=== PATIENT | female | born 1945 | race Caucasian/White ===

== ENCOUNTER → 2016-11-28 | Outpatient (CLI) | payer BC ==
[~2016-11-28] MED LIST: ACET1TAB84 PO; ACET325T96 PO; ASPEC325 PO; ASPI325T45 PO; CALC500C3 PO; CEPH500C2 PO; FRRG PO; HYDR-5688 PO; LACT1CAP6 PO; LORA-741 PO; LOSA50TA6 PO; METO25TA3 PO; MISCCAP80 PO; MULT-845 PO; OMEG10007 PO; OXYC-57 PO; PROM25TA9 PO; SALI1SPR3 NAE
--- NOTE | 2016-11-28 11:52 | Discharge Instructions ---
Discharge Instructions Procedure Procedure Date: Nov 28, 2016. Reason for visit: Right Masses. Discharge Discharge Date: Nov 28, 2016. Discharge Diagnosis: post right breast ultrasound guided core biopsy x 2 Instructions Activity Recommendations: Additional Limitations (see below) Return to School/Work: no limitations Recommended Home Diet: No Limitations Provider Instructions: ACTIVITY RECOMMENDATIONS: * No lifting, pushing, pulling or exercising the affected side for three days. RETURN TO SCHOOL/WORK: * You may return to work/school after the procedure, but do not perform any strenuous activities for 24 to 48 hours. MEDICATIONS: * Tylenol (two 325 mg) every four to six hours if needed for mild pain (if not allergic to Tylenol). DIET: * Resume previous diet. SPECIAL CARE INSTRUCTIONS: * Keep biopsy site dry for 24 hours. May shower after 24 hours, but do not soak (bathe) incision. * May remove Tegaderm (plastic patch) tomorrow AFTER showering. * Leave the steri-strips on for one week. Allow the steri-strips to fall off by themselves. If not off after one week, you may remove them. You may place a Bandaid crosswise over the strips, if desired. * Apply ice 10 minutes on and 10 minutes off as needed. * Wear a bra at bedtime to sleep more comfortably for 2-3 days. * Your referring physician should have the results after approximately 5 to 7 business days. * Call for unusual bleeding, fever, drainage, etc or if you have any questions call [phone] during normal business hours or after hours call Dr Villatoro, . FOLLOW UP VISIT: Follow-up with Referring Physician as scheduled. Allergies Coded Allergies: Ciprofloxacin (Verified Allergy, Unknown, itching, 02/02/15) Maximo Albert Recommendations: Call your doctor if: * Temperature above 101 degrees * Pain not relieved by pain medicine ordered * There is increased drainage or redness from any incision * You have any unanswered questions or concerns. Your Doctors Instructions noted above were prepared by provider Arlette Villatoro. Patient Signature Section: Patient Instructions Signature Page Ayde Oneill Patient (or Guardian) Signature/Date: I have read and understand the instructions given to me by my caregivers. Caregiver/RN/Doctor Signature/Date: The above-named patient and/or guardian has received patient instructions on this date. + Original Patient Signature Page (only) stays with chart. Please make copy for patient.
--- NOTE | 2016-11-28 15:11 | MAMMOGRAPHY REPORT ---
UNILATERAL RIGHT DIGITAL DIAGNOSTIC MAMMOGRAM TOMOSYNTHESIS: 11/28/2016 CLINICAL HISTORY: Status post ultrasound guided core needle biopsy of an irregular and angular mass in the 9:00 periareolar right breast, and a small indeterminate hypoechoic mass in the 12:00 right b reast. FINDINGS: Please refer to the report from right breast ultrasound guided core biopsy performed at t he same time for full detail. IMPRESSION: POST PROCEDURE IMAGING FOR MARKER PLACEMENT Please refer to the report from right breast ultrasound guided core biopsy performed at the same jermain e for full detail. Approximately 10% of breast cancers are not detected with mammography. A negative mammographic repor t should not delay biopsy if a clinically suggestive mass is present. Arlette Villatoro M.D. ay/:11/28/2016 12:03:10 Attending Technologist: Nevaeh SABA(Janes)(M), [facility] Lab Tech: Yin Larios, [facility] BI-RADS Code: Post Procedure Imaging For Marker Placement
--- NOTE | 2016-11-28 15:11 | MAMMOGRAPHY REPORT ---
MULTIPLE ULTRASOUND GUIDED BIOPSIES RIGHT BREAST: 11/28/2016 CLINICAL HISTORY: Indeterminate solid masses in the 9:00 and 12:00 right breast. Patient presented for ultrasound-guided core biopsy. Please refer to the report from right breast ultrasound guided core biopsy performed at the same jermain e for full detail. IMPRESSION: ULTRASOUND GUIDED BIOPSY Please refer to the report from right breast ultrasound guided core biopsy performed at the same jermain e for full detail. Arlette Villatoro M.D. ay/:11/28/2016 12:03:54 Attending Technologist: Nevaeh SABA(Janes)(M), [facility] Dry Cell Sealer: Yin Larios, [facility]
--- NOTE | 2016-11-28 15:11 | MAMMOGRAPHY REPORT ---
THIS REPORT HAS BEEN AMENDED. MULTIPLE ULTRASOUND GUIDED BIOPSIES RIGHT BREAST: 11/28/2016 CLINICAL HISTORY: Irregular and angular mass in the 9:00 right breast, and a lobulated hypoechoic in determinate mass in the 12:00 right breast. Patient presents for ultrasound guided core needle biop sy 2. COMPARISON: Comparison is made to exams dated: 11/14/2016 mammogram, 11/14/2016 ultrasound, 11/03/20 16 mammogram, 10/14/2015 mammogram, and 10/09/2013 mammogram - [facility]. PATIENT CONSENT: The procedure, risks and benefits were discussed with the patient and informed writ ten consent was obtained. Specific risks to this procedure include: bleeding, infection, puncture of adjacent structure, nontarget biopsy, sampling error and medication reaction. PROCEDURE DESCRIPTION: A time out was performed and the right breast was agreed as the site of biops y. The skin was prepped and draped in the usual sterile fashion. First, the solid irregular and ang ular mass in the 9:00 right breast was identified and chosen as the target for biopsy. Subcutaneous and intraparenchymal 1% buffered lidocaine, with and without epinephrine, was administered as local anesthesia. A skin incision was made. Through the incision, 7 samples were taken with a 14 gauge Ac hieve biopsy device. A ribbon shaped metallic marker was placed at the biopsy site. Hemostasis was a chieved after manual compression. The patient tolerated the procedure well and there was no immediat e complication. The samples were sent to the pathology department in an appropriately labeled conta iner. Then the lobulated hypoechoic solid-appearing mass in the 12:00 breast was identified and chosen as target for biopsy. Additional 1% buffered lidocaine with and without epinephrine was administered a s local anesthesia. A skin incision was made. Through the incision, 6 samples were taken with a 14 gauge Achieve biopsy device. A wing-shaped metallic marker was placed at the biopsy site. Hemostasis was achieved after manual compression. The patient tolerated the procedure well and there was no im mediate complication. The samples were sent to the pathology department in an appropriately labeled container. Post procedure right CC and ML tomosynthesis images demonstrate a new ribbon-shaped metallic biopsy marker in the 9:00 breast, and new wing-shaped metallic biopsy marker in the 12:00 breast, at the si te of the biopsied hypoechoic solid masses seen on ultrasound. There is minimal post biopsy hematom a superior to the wing-shaped metallic biopsy marker in the 12:00 axis, likely due to lidocaine inje ction, and also small 1 cm hematoma at the site of the biopsied irregular mass in the 9:00 breast. IMPRESSION: ULTRASOUND GUIDED BIOPSY Status post ultrasound-guided core biopsy of indeterminate solid masses in the 9:00 and 12:00 right breast, with biopsy markers placed at each site. The patient will receive notification of the biopsy results from her referring physician. Arlette Villatoro M.D. ay/:11/28/2016 12:18:35 Attending Technologist: Nevaeh SABA(R)(M), [facility] Belting Inspector: Yin Larios, [facility] AMENDMENT: 12/06/2016 Arlette Villatoro M.D. 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 Pathology results from the small hypoechoic mass in the 12:00 right breast also frisian elded an intraductal papilloma. No carcinoma was seen. No significant atypia was associated with t he palpable mass. However, given the angular appearance of the biopsy-proven papilloma in the 9:00 right breast, surgical excision is recommended. Therefore, surgical consultation for possible surgi favian excision of both lesions is recommended.
== END ==
LOC: C.MAMM 10:49
PROVIDERS: ATTEND Obstetrics & Gynecology
DX: N60.21 Fibroadenosis of right breast (principal); R92.0 Mammographic microcalcification found on diagnostic imaging of breast

== ENCOUNTER 2017-01-16 08:21 | Inpatient (IN) | payer BC, OTHER ==
[2016-12-18 14:05] VITALS: BMI 29.0
--- NOTE | 2016-12-18 14:43 | PAT Medication Instructions ---
Service Date Dec 18, 2016. Current Home Medication List Acetaminophen (Tylenol Arthritis Ext Rel), 650 MG PO NOON Calcium Carbonate (Tums), 1 TAB PO PRN Fish Oil ([place]-3), 1,000 MG PO NOON Lactobacillus (Probiotic), 1 CAP PO NOON Lorazepam (Ativan), 0.5 MG PO BID Losartan Potassium (Cozaar), 75 MG PO BID Metoprolol Succinate (Toprol Xl), 25 MG PO QAM Multiple Vitamins W/ Minerals (Centrum Silver Adult 50+), 1 PO NOON Saline (Saline Nasal [place]), 1 SPRAY AL BID Medication Instructions For Your Scheduled Surgery - Hold the following medications 2 weeks prior to surgery: Fish Oil ([place]-3), 1,000 MG PO NOON - Hold the following medications 24 hours prior to surgery: Losartan Potassium (Cozaar), 75 MG PO BID - Hold the following medications the morning of surgery: Calcium Carbonate (Tums), 1 TAB PO PRN Multiple Vitamins W/ Minerals (Centrum Silver Adult 50+), 1 PO NOON Lactobacillus (Probiotic), 1 CAP PO NOON - Take the following medications the morning of surgery with a sip of water OTHERWISE NOTHING TO EAT OR DRINK AFTER MIDNIGHT: Acetaminophen (Tylenol Arthritis Ext Rel), 650 MG PO NOON (may take up to 4 hours prior to surgery if needed) Saline (Saline Nasal [place]), 1 SPRAY AL BID Metoprolol Succinate (Toprol Xl), 25 MG PO QAM Lorazepam (Ativan), 0.5 MG PO BID - Take the following medications as scheduled the night before surgery: Acetaminophen (Tylenol Arthritis Ext Rel), 650 MG PO NOON Saline (Saline Nasal [place]), 1 SPRAY AL BID If you have any questions please call us at [phone] (Flower [place] PA-C) or [phone] or [phone]
[2016-12-18 15:07] LABS: BASO % 0.5 %; BASO ABS # 0.03 K/uL (0-0.2); COMPLETE YES; EOS % 3.1 %; IG% 0.2 %; LYMPH % 35.1 %; LYMPH ABS # 2.15 K/uL (1.2-3.4); MEAN CELL VOLUME 87.8 fL (80-100); MEAN CORPUSCULAR HEMOGLOBIN 30.5 pg (25-34); MEAN CORPUSCULAR HGB CONC 34.7 g/dl (32-36); MEAN PLATELET VOLUME 8.9 fL (7.4-10.4); MONO % 10.4 %; NEUT % 50.7 %; PLATELET COUNT 192 K/uL (130-400); WHITE BLOOD COUNT 6.13 K/uL (4.8-10.8)
[2016-12-18 15:20] LABS: PARTIAL THROMBOPLASTIN RATIO 1.2; PROTHROMBIN TIME (PATIENT) 10.3 SECONDS (9.0-12.0)
--- NOTE | 2016-12-18 15:32 | DIAGNOSTIC IMAGING REPORT ---
CHEST 2 VIEWS ROUTINE CLINICAL HISTORY: Preoperative chest COMPARISON STUDY: 01/01/2015 FINDINGS: The cardiac and mediastinal contours are normal. There is no evidence of focal pulmonary consolidation. There is no evidence of failure. No pleural effusions are visualized.[ Prominent left basal markings are likely atelectatic IMPRESSION: No active disease in the chest. Electronically signed by: Thad Colin M.D. 12/18/2016 3:30 PM Dictated Date/Time: 12/18/2016 3:29 PM
[2016-12-18 16:03] LABS: C-REACTIVE PROTEIN 0.67 mg/dl (0-0.29); CALCIUM 9.4 mg/dl (8.5-10.1); CREATININE 0.9 mg/dl (0.60-1.20); POTASSIUM 3.8 mmol/L (3.5-5.1)
[2016-12-18 16:38] LABS: BUN/CREATININE RATIO 31.4 (10-20)
[2016-12-19 06:22] LABS: ESTIMATED AVERAGE GLUCOSE 105 mg/dl; HA1C FLAG Normal (Normal)
--- NOTE | 2017-01-13 10:23 | HISTORY & PHYSICAL EXAMINATION ---
DATE OF ADMISSION: 01/16/2017 CHIEF COMPLAINT: Left knee pain. HISTORY OF PRESENT ILLNESS: A 71-year-old female who is now 2 years out from a right knee replacement, presents for surgical treatment of her left knee. She has got a fairly long history of left knee pain and discomfort that has gotten worse over the past 2 years. She describes global pain. The more she is on it the more it hurts and the more it swells. She has pain with every step. She has been through extensive conservative treatment including injections and aspiration injection which become less successful over time. She would like to have her left knee replaced. She is happy with her right knee. No significant pain or discomfort. PAST MEDICAL HISTORY: 1. Monoclonal gammopathy. 2. History of fainting spells. 3. Hypertension. 4. Gastroesophageal reflux disease. PAST SURGICAL HISTORY: Include: 1. Tonsillectomy. 2. Breast lumpectomy. 3. Right knee replacement done 02/02/2015. ALLERGIES: CIPRO. CURRENT MEDICINES: 1. Losartan 75 mg twice a day. 2. Metoprolol 25 mg in the morning. 3. Lorazepam 0.5 mg twice a day. 4. Centrum Silver. 5. Probiotic. 6. Tylenol Arthritis. 7. Fish oil. SOCIAL HISTORY: A 71-year-old female. She is from [place]. She is . Two drinks per day. Does not smoke. FAMILY HISTORY: Significant for heart disease, diabetes, myeloma. REVIEW OF SYSTEMS: Significant for this monoclonal gammopathy. Denies any bleeding or chest pain. No shortness of breath. No history of DVT or PE. PHYSICAL EXAMINATION: GENERAL: Reveals a healthy pleasant, middle-aged female. She looks to be in good health. HEAD, EYES, EARS, NOSE, AND THROAT EXAMINATION: Benign. NECK: Supple. No lymphadenopathy. LUNGS: Clear to auscultation. HEART: Regular rate and rhythm. ABDOMEN: Soft, nontender, nondistended. EXTREMITY EXAMINATION: Grossly neurovascularly intact except as follows: Examination of left knee reveals slight varus alignment to her knee. She has got a moderate sized knee effusion. Range of motion is 5-120. No instability. No pain with hip motion. Examination of the right knee reveals well-healed incision. No effusion. Range of motion 0-120. X-RAYS: X-rays of the left knee reviewed. It shows advanced medial compartment DJD. She has got complete loss of the medial joint space. She does have some tibial femoral subluxation. She has osteophytes primarily in the medial and patellofemoral compartments. ASSESSMENT: A 71-year-old female 2 years for right knee replacement with advanced left knee degenerative joint disease. She has failed conservative treatment and would like to have her left knee replaced. PLAN: We are going to take her to the operative left total knee replacement. The risks and benefits of this procedure were explained to the patient including but not limited to DVT, PE, , infection, neurological injury, vascular injury, bleeding problems, pain, limited range of motion, stiffness, failure to relieve symptoms, incomplete relief of symptoms, persistent pain, etc. The patient understands and desires to proceed. Informed consent was obtained. The patient had preoperative workup. Chest x-ray showed no acute disease. EKG showed normal sinus rhythm. Labs were all normal except just slightly elevated sed rate and C-reactive protein. She has got no focal signs of infection. The knee is doing well. The patient did struggle with pain initially in the postop period. The morphine really had an adverse effect and will have to try and manage her pain alternatively. She did pretty well with Percocet and will probably stick with that and stay away from the morphine.
[2017-01-16] VITALS (8 sets, daily range): BP systolic 127–167; BP diastolic 75–95; PULSE 53–74; TEMP 36.3–37.1; O2SAT 94–99; Ht 165.1 cm; Wt 79.9 kg
[~2017-01-16] VITALS: Ht 165.1 cm; Wt 79.9 kg
[~2017-01-16 08:21] MED LIST changes: -ACET325T96 PO; +ACETAMINOPHEN 500 MG TAB PO SCH; -ASPEC325 PO; -ASPI325T45 PO; +BUPIVACAINE 0.25% 30 ML VIAL ONE; +BUPIVACAINE 0.5 % 5 MG/1 ML PF 10ML VIAL ONE; +BUPIVACAINE LIPOSOME 266 MG, BUPIVACAINE/EPINEPHRINE INJ 50 ML, SODIUM CHLORIDE 0.9% PF... INFIL SCH; +CEFAZOLIN 2000 MG/60 ML D5W 60 ML IV SCH; -CEPH500C2 PO; +FAMOTIDINE 20 MG TAB PO SCH; -FRRG PO; +GABAPENTIN 300 MG CAP PO SCH; -HYDR-5688 PO; +LACTATED RINGER'S 1000ML 1,000 ML IV SCH; +LACTATED RINGER'S 1000ML 500 ML IV ONE; +LACTATED RINGER'S 1000ML IV SCH; +METOCLOPRAMIDE HCL 10 MG TAB PO SCH; -MISCCAP80 PO; -OXYC-57 PO; -PROM25TA9 PO; +SCOPOLAMINE 1.5 MG TDSY TD SCH; +TRANEXAMIC ACID INJ 1,000 MG in SODIUM CHLORIDE 0.9% 100ML 100 ML IV SCH
--- NOTE | 2017-01-16 08:50 | History & Physical Bridge Note ---
H&P Re-Evaluation Bridge Note: I have examined the patient, reviewed the History & Physical and in the interval since the performance of the History & Physical I have noted the following changes of clinical significance: No changes noted
[2017-01-16] MEDS ORDERED: MIDAZOLAM HCL 1 MG/ML 2ML VIAL ONE (10:03)
[2017-01-16] MEDS ORDERED: FENTANYL CITRATE INJ 50 MCG/1 ML 2 ML VIAL ONE (10:03)
[2017-01-16] MEDS ORDERED: ATROPINE SULFATE 0.1 MG/ML 5ML SYR IV PRN (11:00)
[2017-01-16] MEDS ORDERED: EpHEDrine SULFATE INJ 50 MG/ML AMP IV PRN (11:00)
[2017-01-16] MEDS ORDERED: BUPIVACAINE/EPINEPHRINE 0.25% 1:200,000 30 ML VIAL ONE (11:21)
[2017-01-16] MEDS ORDERED: PROPOFOL IV EMULSION 10 MG/ML 20 ML VIAL IV ONE ×2 (11:54)
[2017-01-16] MEDS ORDERED: LIDOCAINE HCL 2% 2 ML VIAL (20MG/ML) ONE (11:54)
[2017-01-16] MEDS ORDERED: BACITRACIN 50,000 UNITS IR ONE (12:12)
--- NOTE | 2017-01-16 13:06 | [facility] Post Operative Brief Note ---
Immediate Operative Summary Operative Date Jan 16, 2017. Pre-Operative Diagnosis Left Knee Advanced Degenerative Joint Disease Post-Operative Diagnosis Left Knee Advanced Degenerative Joint Disease Procedure(s) Performed Left Total Knee Arthroplasty Surgeon Dr. Morse Winder Helper Surgeon(s) NICKI Dickens Estimated Blood Loss 50 ml Findings Left Knee DJD Fluids (cc crystalloids) 1000 cc Specimens A. Left Knee Bone and Tissue Drains None Anesthesia Spinal Complication(s) None Disposition Recovery Room / PACU
[2017-01-16] MEDS ORDERED: ALUMINUM/MAGNESIUM/SIMETH (MAALOX MAX) 30 ML UDC PO PRN (13:15)
[2017-01-16] MEDS ORDERED: SILVER SULFADIAZINE 1% CR 50 GM JAR EXT PRN (13:15)
[2017-01-16] MEDS ORDERED: OXYCODONE HCL IR 5 MG TAB (IMMEDIATE RELEASE) PO PRN (13:15)
[2017-01-16] MEDS ORDERED: BISACODYL 10 MG SUPP PR PRN (13:15)
[2017-01-16] MEDS ORDERED: METOCLOPRAMIDE HCL INJ 5 MG/ML 2 ML VIAL IV PRN (13:15)
[2017-01-16] MEDS ORDERED: CALCIUM CARBONATE 500 MG CHEWABLE PO PRN (13:15)
[2017-01-16] MEDS ORDERED: ZOLPIDEM TARTRATE 5 MG TAB PO PRN (13:15)
[2017-01-16] MEDS ORDERED: MAGNESIUM HYDROXIDE SUSP 30 ML UDC PO PRN (13:15)
[2017-01-16] MEDS ORDERED: DiphenhydrAMINE HCL 50 MG/ML VIAL IV PRN (13:15)
--- NOTE | 2017-01-16 13:34 | DIAGNOSTIC IMAGING REPORT ---
LEFT KNEE 1 OR 2 VIEWS ROUTINE CLINICAL HISTORY: Degenerative arthritis. Postop study. COMPARISON: None. DISCUSSION: There are postsurgical changes of a total left knee arthroplasty and patellar resurfacing. The femoral and tibial components appear well seated. Overlying skin nikhil are evident. There is air within soft tissues consistent with recent surgery. IMPRESSION: Postsurgical changes of a total left knee arthroplasty. Electronically signed by: Thad Colin M.D. 01/16/2017 1:33 PM Dictated Date/Time: 01/16/2017 1:32 PM
--- NOTE | 2017-01-16 13:48 | Anesthesiology Progress Note ---
Anesthesia Post Op Note Date & Time Jan 16, 2017 at 13:48 Vital Signs Pain Intensity: 0 Vital Signs Past 12 Hours Date Time Temp Pulse Resp B/P Pulse Ox O2 Delivery O2 Flow Rate FiO2 01/16/17 13:40 36.4 63 16 125/80 99 Nasal Cannula 2 01/16/17 13:30 58 15 134/76 99 Nasal Cannula 2 01/16/17 13:20 64 14 128/76 97 Nasal Cannula 2 01/16/17 13:14 36.3 69 16 121/68 97 Nasal Cannula 2 01/16/17 08:50 36.4 74 18 167/95 97 Room Air Notes Mental Status: alert / awake / arousable, participated in evaluation Pt Amnestic to Procedure: Yes Nausea / Vomiting: adequately controlled Pain: adequately controlled Airway Patency, RR, SpO2: stable & adequate BP & HR: stable & adequate Hydration State: stable & adequate Neuraxial Anesthesia: was administered, sensory block is resolving Anesthetic Complications: no major complications apparent
--- NOTE | 2017-01-16 13:59 | OPERATIVE REPORT ---
DATE OF OPERATION: 01/16/2017 SURGEON: Aaron Morse MD OUTSIDE SALES INSPECTOR: NICKI Gregory PREOPERATIVE DIAGNOSIS: Left knee degenerative joint disease. POSTOPERATIVE DIAGNOSIS: Same. PROCEDURE PERFORMED: Left cemented posterior stabilized total knee arthroplasty. COMPLICATIONS: None. ESTIMATED BLOOD LOSS: 50 mL. FLUID REPLACEMENT: 1000 mL crystalloid fluid replacement. ANESTHESIA: Spinal with adductor canal block. DRAINS: None. SPECIMENS: Left knee sent for pathology. TOURNIQUET TIME: 49 minutes at 300 mmHg. OPERATIVE INDICATIONS: The patient is a 71-year-old very active female who has had a long history of bilateral knee problems. She underwent a right knee replacement a little over 2 years ago and has done pretty well from this. She developed persistent and progressive pain in her left knee, unresponsive to conservative treatment. She elected to proceed with operative treatment. OPERATIVE FINDINGS: Operative findings revealed advanced left knee DJD. She had grade 4 [id number] disease of the medial femoral condyle and medial tibial plateau. She had extensive eburnation of the medial femoral condyle and medial tibial plateau. She had osteophytes primarily in the medial compartment. She had a varus deformity to her knee. Moderate-sized knee effusion. OPERATIVE IMPLANTS: Operative implants consisted of: 1. Biomet Vanguard size 65 left posterior stabilized femoral component. 2. Biomet size 71 tibial tray. 3. A 12-mm posterior stabilized polyethylene insert. 4. A 34 x 8.5 all poly patella. OPERATIVE PROCEDURE: The patient was taken to the operating room, identified and placed on the operating table in the supine position. All contact areas were appropriately padded. IV antibiotics were provided by anesthesia team. A spinal anesthetic and adductor canal block had been provided in the holding area. Finley catheter was placed in sterile fashion. A left thigh tourniquet was then placed and left lower extremity was then prepped and draped in the usual sterile fashion. The left leg was elevated and exsanguinated with Esmarch and tourniquet was placed at 300 mmHg. An anterior approach of the left knee was then performed through a longitudinal incision centered over the patella. Sharp dissection was carried out through the subcutaneous tissues down to the level of the extensor mechanism. A medial parapatellar arthrotomy incision was made. Some subperiosteal dissection was carried out medially. The fat pad was resected from beneath the patellar tendon. The lateral patellofemoral ligament was released. The patella was everted and knee was flexed. The osteophytes were taken off the distal femur. The ACL and PCL were then released from the distal femur and the tibia subluxated anteriorly. The external tibial alignment jig was then placed in the anterior face of the tibia and adjusted 14 mm medially. Proximal tibial cut was made to remove about a millimeter or 2 of bone from the most deficient aspect of the medial tibial plateau. Tibia was then sized to a size 71. Some osteophytes were taken off medial and posteromedially. Attention was then drawn to the femur. The distal femur was entered with a sharp drill bit. Intramedullary canal was suctioned. A left 5-degree valgus cutting guide was placed. Distal femoral cutting block was pinned in place. Distal femoral cut was made to take an additional 3 mm of bone off the distal femur. The femur was then sized to a size 65. We did downsize this slightly. The AP cutting block was pinned parallel to the epicondylar axis, which was 5 degrees of external rotation. The anterior cut, anterior chamfer, posterior cut, and posterior chamfer cuts were made. Box cutting guide was placed and adjusted slightly lateral. The box cut was made. The knee was flexed. The remnants of the medial and lateral menisci were excised. The osteophytes were taken off the posterior aspect of the femur. Trial femoral component was placed. Tibial tray was pinned in maximum external rotation and drill and stem punch were used to create defect in proximal tibia for the tibial tray. The knee was then trialed and the 12-mm insert fit most appropriately. Attention was then drawn to the patella. The patella was cleaned of all soft tissues. Patella thickness measured 23 mm and cut down to 14. It was sized to a size 34. Lug holes were drilled for a 34 patella. Lateral osteophyte was removed. Patella button was placed. Knee was taken through range of motion and the patella tracked nicely with no thumbs test. Attention was then drawn toward placement of permanent components. All trial components were removed. A bone plug was placed in the distal femur to limit blood loss. A double batch of Palacos G cement was mixed. A left size 65 posterior stabilized femoral component, size 71 tibial tray, 12-mm posterior stabilized polyethylene insert, and a 34 x 8.5 all poly patella were then cemented in place. Knee was brought out into full extension until cement hardened. A final cement check was then performed. The pericapsular tissues were injected with 100 mL of a combination of 20 mL of Exparel, 30 mL of normal saline, and 50 mL of 0.25% Marcaine with epinephrine. The patient did receive 1 gram of tranexamic acid. The tourniquet was then let down for final tourniquet time of 49 minutes. Hemostasis was assured with use of electrocautery. The extensor mechanism was then closed with a combination of #1 PDS suture and #1 Vicryl suture in a [id number] fashion. Extensor mechanism was checked and found to be intact. Subcutaneous tissues were then closed with 2-0 Dexon suture in a buried interrupted fashion. Skin was closed skin nikhil. Leg was then cleaned and dried and a sterile dressing of Xeroform, 4 x 4, sterile cast padding and Tate bandage were applied. The patient was then transferred to the recovery room in stable condition. The patient tolerated the procedure well with no complications. All needle and sponge counts were correct at the end of the operation. I attest to the content of the Intraoperative Record and any orders documented therein. Any exceptio ns are noted below.
[2017-01-16] MEDS: D5W AND 1/2NSS + 20MEQ KCL 1,000 ML IV SCH ×2 (15:26→23:20)
[2017-01-16] MEDS: KETOROLAC TROMETHAMINE 15 MG/ML VIAL IV. SCH ×2 (15:27→21:55)
[2017-01-16] MEDS: CHECK SCOPOLAMINE PATCH PLACEMENT SCH ×2 (15:28→23:23)
--- NOTE | 2017-01-16 15:58 | PROGRESS NOTE ---
DATE: 01/16/2017 DATE: 01/16/2017. SUBJECTIVE: A 71-year-old white female postop from a left knee replacement. She is doing well. Pain is controlled. Really not having any pain yet. No chest pain or shortness of breath. Not feeling dizzy or lightheaded. OBJECTIVE: VITAL SIGNS: Temperature is 36.5. Vital signs stable. PHYSICAL EXAMINATION: GENERAL: Reveals a healthy, pleasant middle-aged female. She is sitting up in bed and looks comfortable. She is talking with her . LUNGS: Clear to auscultation. HEART: Regular rate and rhythm. ABDOMEN: Soft, nontender, nondistended. EXTREMITY EXAMINATION: Grossly neurovascularly intact except as follows: Examination of the left lower extremity reveals the leg to be well aligned. Dressing is clean, dry and intact. She can slightly flex and extend her toes. Really not much feeling yet in her foot. She has got brisk refill. X-RAYS: X-rays of the left knee from recovery room were reviewed. It shows a cemented posterior stabilized total knee arthroplasty. Components looked to be in good position. No signs of problems. ASSESSMENT: A 71-year-old white female postop from a left knee replacement, doing well. Block is just wearing off. No pain at all yet. Her nerve function is returning. PLAN: 1. DVT prophylaxis including thigh-high TEDs, SCDs, and aspirin twice a day. 2. PT/OT. Weight bear as tolerated. Left total knee protocol. 3. Pain control, doing pretty well with current pain regimen. 4. IV antibiotics x24 hours. 5. Disposition: Plan to discharge to home likely with some home health once adequately recovered.
[2017-01-16] MEDS: FERROUS GLUCONATE 324 MG TAB PO SCH (18:45)
[2017-01-16] MEDS ORDERED: TRANEXAMIC ACID INJ 1,000 MG in SODIUM CHLORIDE 0.9% 100ML 100 ML IV SCH (19:00)
[2017-01-16] MEDS: ONDANSETRON INJ 2 MG/ML 2 ML VIAL IV PRN (19:19)
[2017-01-16] MEDS: CEFAZOLIN IV 1,000 MG in DEXTROSE 5% 50ML 50 ML IV SCH (20:27)
[2017-01-16] MEDS: TAPENTADOL ER 50 MG TABCR PO SCH (20:28)
[2017-01-16] MEDS: ASPIRIN 325 MG ECTAB PO SCH (20:30)
[2017-01-16] MEDS: DOCUSATE SODIUM 100 MG CAP PO SCH (20:30)
[2017-01-16] MEDS: LORAZEPAM 0.5 MG TAB PO SCH (20:47)
[2017-01-16] MEDS: SODIUM CHLORIDE 0.65% NA SOLN 45 ML (OCEAN) NAE SCH (20:47)
[2017-01-16] MEDS: ACETAMINOPHEN 500 MG TAB PO SCH (21:55)
[2017-01-17 03:23] VITALS: BP 139/79; PULSE 69; TEMP 36.9; O2SAT 95
[2017-01-17] MEDS: CEFAZOLIN IV 1,000 MG in DEXTROSE 5% 50ML 50 ML IV SCH (03:52)
[2017-01-17] MEDS: KETOROLAC TROMETHAMINE 15 MG/ML VIAL IV. SCH ×5 (03:52→22:03)
[2017-01-17] MEDS: ACETAMINOPHEN 500 MG TAB PO SCH ×3 (05:50→22:04)
[2017-01-17] MEDS: D5W AND 1/2NSS + 20MEQ KCL 1,000 ML IV SCH (05:50)
[2017-01-17 06:03] LABS: HEMATOCRIT 28.6 % (37-47); MEAN CELL VOLUME 87.2 fL (80-100); MEAN CORPUSCULAR HEMOGLOBIN 30.2 pg (25-34); MEAN CORPUSCULAR HGB CONC 34.6 g/dl (32-36); MEAN PLATELET VOLUME 8.8 fL (7.4-10.4); PLATELET COUNT 157 K/uL (130-400); RED BLOOD COUNT 3.28 M/uL (4.2-5.4); WHITE BLOOD COUNT 6.32 K/uL (4.8-10.8)
[2017-01-17 06:50] LABS: BLOOD UREA NITROGEN 13 mg/dl (7-18); CALCIUM 8.2 mg/dl (8.5-10.1); CARBON DIOXIDE 27 mmol/L (21-32); CHLORIDE 103 mmol/L (98-107); GLUCOSE 110 mg/dl (70-99); POTASSIUM 4.1 mmol/L (3.5-5.1); SODIUM 138 mmol/L (136-145)
--- NOTE | 2017-01-17 07:45 | Anesthesiology Progress Note ---
Anesthesia Post Op Note Date & Time Jan 17, 2017 at 07:45 Vital Signs Pain Intensity: 0.0 Vital Signs Past 12 Hours Date Time Temp Pulse Resp B/P Pulse Ox O2 Delivery O2 Flow Rate FiO2 01/17/17 03:23 36.9 69 16 139/79 95 Room Air 01/16/17 23:20 Room Air 01/16/17 23:10 37.1 74 16 137/78 94 Room Air Notes Mental Status: alert / awake / arousable, participated in evaluation Pt Amnestic to Procedure: Yes Nausea / Vomiting: adequately controlled Pain: adequately controlled Airway Patency, RR, SpO2: stable & adequate BP & HR: stable & adequate Hydration State: stable & adequate Neuraxial Anesthesia: sensory block resolved Anesthetic Complications: no major complications apparent
[2017-01-17 08:15] VITALS: BP 142/50; PULSE 72; TEMP 36.8; O2SAT 95
[2017-01-17] MEDS: CHECK SCOPOLAMINE PATCH PLACEMENT SCH ×3 (08:22→23:28)
[2017-01-17 08:42] VITALS: O2SAT 95
[2017-01-17] MEDS: FERROUS GLUCONATE 324 MG TAB PO SCH ×3 (09:18→17:38)
[2017-01-17] MEDS: PANTOprazole SOD 40 MG TAB PO SCH (09:18)
[2017-01-17] MEDS: CEROVITE ADV FORMULA TAB PO SCH (09:20)
[2017-01-17] MEDS: LOSARTAN POTASSIUM 25 MG TAB PO SCH (09:20)
[2017-01-17] MEDS: DOCUSATE SODIUM 100 MG CAP PO SCH ×2 (09:22→20:50)
[2017-01-17] MEDS: ASPIRIN 325 MG ECTAB PO SCH ×2 (09:23→20:49)
[2017-01-17] MEDS: MULTIVITAMIN TAB PO SCH (09:24)
[2017-01-17] MEDS: SODIUM CHLORIDE 0.65% NA SOLN 45 ML (OCEAN) NAE SCH ×2 (09:25→20:49)
[2017-01-17] MEDS: METOPROLOL SUCC 25MG EXT REL TAB PO SCH (09:25)
[2017-01-17] MEDS: ONDANSETRON INJ 2 MG/ML 2 ML VIAL IV PRN (09:31)
[2017-01-17] MEDS: LORAZEPAM 0.5 MG TAB PO SCH ×2 (09:34→20:49)
[2017-01-17] MEDS: TAPENTADOL ER 50 MG TABCR PO SCH ×2 (09:35→20:49)
[2017-01-17 11:39] VITALS: BP 122/64; PULSE 76; TEMP 36.8; O2SAT 96
[2017-01-17] MEDS ORDERED: LACTOBACILLUS ACIDOPHILUS (FLORANEX) TAB PO SCH (12:30)
[2017-01-17] MEDS ORDERED: PROM25TA9 PO (13:26)
[2017-01-17] MEDS ORDERED: ASPEC325 PO (13:26)
[2017-01-17] MEDS ORDERED: FRRG PO (13:26)
[2017-01-17] MEDS ORDERED: OXYC-57 PO (13:26)
--- NOTE | 2017-01-17 13:28 | Discharge Instructions ---
Discharge Instructions Admission Reason for Admission: Left Knee Degenerative Joint Disease Discharge Discharge Diagnosis / Problem: Left Knee Replacement Discharge Goals Goal(s): Decrease discomfort, Improve function, Increase independence, Improve disease control, Therapeutic intervention Activity Recommendations Activity Limitations: per Instructions/Follow-up section Weightbearing Status: Left weightbearing . Instructions / Follow-Up Instructions / Follow-Up ACTIVITY RECOMMENDATIONS: Physical Therapy: * You will go to physical therapy three times each week for four to six weeks after your surgery in order to regain your knee range of motion and to retrain your knee to work properly. * It is just as important to make sure you are getting your knee perfectly straight as it is to regain your knee bend. * Taking a pain pill an hour before therapy can help you have a more productive and comfortable therapy session. Home Exercise: * You were shown a series of exercises (heel props, heel slides, etc.) in the hospital. Do these exercises three to four times each day including the exercises you were shown in physical therapy. Walking: * Get up and walk several times each day. For the first four weeks, try not to stand or walk for more than one hour at a time. If you do stand or walk for more than one hour, you will not hurt anything, but your knee and leg will likely swell. * As you feel comfortable, you may change from the walker or crutches to a cane and then to independent walking. MEDICATIONS: New Medicine: * You will likely be taking one or more of these medications: 1. Percocet - A quick and shorter-acting pain medication. Take one to two tablets every four to six hours to lessen your pain. 2. Iron Sulfate - Take three times each day for the month after surgery to help you replace the blood lost during surgery. 3. Aspirin - Thins your blood to lessen the chance of forming a blood clot. * The most common side effects of pain medicine and iron are nausea and constipation. If nausea or constipation is too much of a problem or if you have any questions about your new medicines or doses, call [facility] at . We will try to help you manage these issues. VERY IMPORTANT TO READ AND REVIEW" Pain: * The immediate post-operative period after knee replacement surgery is often quite painful. * You are given a prescription for pain medicine. You should take it, as directed, when you need it, especially before physical therapy and before going to bed. Pain that interferes with sleep is very common and can last several months. * You will likely need pain medicine for the first four to six weeks. It will not stop all of the pain. The pain will lessen and as you feel better, you may change to milder pain medicine such as Tylenol. * The most common side effects of pain medicine are nausea and constipation, so don't take more than you need. SPECIAL CARE INSTRUCTIONS: TEDs/Elastic Stockings: * The white elastic stockings help limit swelling and prevent blood clots from forming in your legs. The more you wear them, the more they work. * Wear them for six weeks after knee replacement surgery and four weeks after partial knee replacement. Prevention of Infection: * Take antibiotics one hour before any dental cleaning, dental work, urological procedure, gastrointestinal procedure or any invasive surgery in order to prevent your new joint from getting infected. * You may get the antibiotics from the doctor performing the procedure or you may call our office at before and we will call in a prescription to the pharmacy of your choice. Things to Watch For: * Drainage from the incision site that occurs more than one week after your surgery. * Severely increased knee/leg pain or swelling. * Increased redness at the incision site. * Fever above 102 degrees Fahrenheit. * Unusual chest pain or shortness of breath. * Unusual pain or burning with urination. Call [facility] at with any of the above problems or if you have any questions about your medicines or recovery. FOLLOW UP VISIT: Make an appointment to see your doctor for approximately two weeks after surgery for a progress check and staple removal by calling the office at . Current Hospital Diet Patient's current hospital diet: Regular Diet Discharge Diet Recommended Diet: Regular Diet Procedures Procedures Performed: Left Total Knee Arthroplasty Pending Studies Studies pending at discharge: no Laboratory Results Hemoglobin A1c Test 12/18/16 14:48 Range/Units Estimated Average Glucose 105 mg/dl Hemoglobin A1c 5.3 4.5-5.6 % Medical Emergencies . Who to Call and When: Medical Emergencies: If at any time you feel your situation is an emergency, please call 911 immediately. . Non-Emergent Contact Non-Emergency issues call your: Surgeon . "Provider Documentation" section prepared by Aaron Morse. VTE Core Measure Inpt VTE Proph given/why not?: Other Anticoagulation, Collette Candelaria, SCD's
--- NOTE | 2017-01-17 13:46 | PROGRESS NOTE ---
DATE: 01/17/2017 DATE: 01/17/2017. SUBJECTIVE: A 71-year-old white female postop day 1 from a left total knee replacement. She is doing well. Really not had much pain. Did get nauseated overnight after given some pain medicine. Denies any chest pain or shortness of breath. Not feeling dizzy or lightheaded. OBJECTIVE: VITAL SIGNS: Temperature 36.8. Vital signs stable. PHYSICAL EXAMINATION: GENERAL: Reveals a healthy, pleasant middle-aged female. She is sitting up in bed and looks completely comfortable. LUNGS: Clear to auscultation. HEART: Has a regular rate and rhythm. ABDOMEN: Soft, nontender, nondistended. EXTREMITY EXAMINATION: Grossly neurovascularly intact except as follows: Examination of the left lower extremity reveals the leg to be well aligned. She can dorsiflex and plantarflex her foot appropriately. She is neurologically intact. LABORATORIES: Hemoglobin is 9.9, hematocrit 28.6. Electrolytes are stable. ASSESSMENT: A 71-year-old white female postop day 1 from left total knee replacement, doing pretty well. Pain is controlled. One episode of emesis last night, but doing better this morning. Pain is controlled. PLAN: 1. DVT prophylaxis including thigh-high TEDs, SCDs, and aspirin twice a day. 2. PT/OT. Weightbearing as tolerated. Left total knee protocol. 3. Pain control. Doing well with current pain regimen. 4. Anemia. She is relatively asymptomatic. We will continue iron supplementation. 5. Disposition: She is planning to be discharged to home with home health once adequately recovered.
[2017-01-17 15:07] VITALS: BP 150/81; PULSE 73; TEMP 36.9; O2SAT 96
[2017-01-17 23:15] VITALS: BP 144/77; PULSE 81; TEMP 37.2; O2SAT 95
[2017-01-18] MEDS: KETOROLAC TROMETHAMINE 15 MG/ML VIAL IV. SCH ×2 (03:51→09:24)
[2017-01-18] MEDS: ACETAMINOPHEN 500 MG TAB PO SCH (05:42)
[2017-01-18 07:07] VITALS: BP 150/78; PULSE 80; TEMP 36.8; O2SAT 94
[2017-01-18] MEDS: FERROUS GLUCONATE 324 MG TAB PO SCH (07:28)
[2017-01-18] MEDS: SODIUM CHLORIDE 0.65% NA SOLN 45 ML (OCEAN) NAE SCH (07:28)
[2017-01-18] MEDS: PANTOprazole SOD 40 MG TAB PO SCH (07:29)
[2017-01-18] MEDS: METOPROLOL SUCC 25MG EXT REL TAB PO SCH (07:29)
[2017-01-18] MEDS: CEROVITE ADV FORMULA TAB PO SCH (07:29)
[2017-01-18] MEDS: LOSARTAN POTASSIUM 25 MG TAB PO SCH (07:31)
[2017-01-18] MEDS: MULTIVITAMIN TAB PO SCH (07:31)
[2017-01-18] MEDS: LORAZEPAM 0.5 MG TAB PO SCH (07:32)
[2017-01-18] MEDS: TAPENTADOL ER 50 MG TABCR PO SCH (07:32)
--- NOTE | 2017-01-18 07:43 | PROGRESS NOTE ---
DATE: 01/18/2017 SUBJECTIVE: 71-year-old white female postop day 2 from a left knee replacement. She is doing pretty well. Having a bit more pain with motion. Really no pain at rest. No chest pain or shortness of breath. Not feeling dizzy or lightheaded. OBJECTIVE: VITAL SIGNS: Temperature 36.8. Vital signs stable. PHYSICAL EXAMINATION: GENERAL: Reveals a healthy, pleasant middle-aged female. She is sitting up in her bedside chair eating breakfast. Looks pretty comfortable. LUNGS: Clear to auscultation. HEART: Regular rate and rhythm. ABDOMEN: Soft, nontender, nondistended. EXTREMITIES: Grossly neurovascularly intact except as follows: Examination of the left lower extremity reveals the dressing to be clean, dry and intact. She can dorsiflex and plantarflex her foot appropriately. She is neurologically intact. ASSESSMENT: 71-year-old white female postop day 2 from a left knee replacement, doing pretty well. Pain is reasonably well controlled. PLAN: 1. DVT prophylaxis including thigh-high TEDs, SCDs, and aspirin twice a day. 2. PT/OT. Weightbearing as tolerated. Left total knee protocol. 3. Pain control, doing pretty well with current pain regimen. 4. Disposition: Plan to discharge to home with home health.
[2017-01-18 08:07] VITALS: BP 150/78; PULSE 80; TEMP 36.8; O2SAT 94
[2017-01-18] MEDS: ASPIRIN 325 MG ECTAB PO SCH (08:59)
[2017-01-18] MEDS: DOCUSATE SODIUM 100 MG CAP PO SCH (08:59)
--- NOTE | 2017-01-24 10:44 | DISCHARGE SUMMARY ---
ADMITTING PHYSICIAN AND SURGEON: Dr. Morse. ADMITTING DIAGNOSIS: Left knee degenerative joint disease. SURGERY PERFORMED: Left total knee arthroplasty. SECONDARY DIAGNOSES: Monoclonal gammopathy, history of fainting, hypertension, gastroesophageal reflux disease. CONSULTS: None obtained. HISTORY AND PHYSICAL EXAMINATION: Well documented in the patient's chart. HOSPITAL COURSE: The patient admitted on 01/16/2017 underwent total knee arthroplasty. She tolerated the procedure well. There were no complications. She was transferred to the PACU postoperatively and later to the orthopedic floor for further care. She was given Ancef for antibiotic prophylaxis, LORRIE stockings, SCDs and aspirin for DVT prophylaxis. Hemoglobin, hematocrit and vital signs were monitored during her hospital stay and remained stable. She developed some postoperative anemia with a hemoglobin down to 9.9. She did not require any blood transfusions. She was given an iron supplement. There were no complications. By postoperative day 2, she was tolerating a general diet, pain was controlled with oral pain medicine. She was participating in physical therapy and had no signs or symptoms of deep vein thrombosis. On postop day 2, she was discharged home in good condition, set up with home health services, given printed discharge instructions including prescriptions for aspirin 325 mg b.i.d., iron supplement, Percocet and Phenergan. Continue her home medications, continue physical therapy, weightbearing as tolerated and LORRIE stockings. Follow up in 10-12 days or sooner if there are problems or concerns.
[2017-02-08] MEDS ORDERED: ASPI325T45 PO (14:33)
[2017-03-06] MEDS ORDERED: CEPH500C2 PO (11:11)
[2017-03-06] MEDS ORDERED: HYDR-5688 PO (11:11)
[2017-03-30] MEDS ORDERED: MISCCAP80 PO (14:17)
[2017-04-04] MEDS ORDERED: CEPH500C2 PO (12:12)
[2017-04-04] MEDS ORDERED: HYDR-5688 PO (12:12)
== END 2017-01-18 10:25 | disposition home health service (06) | DRG 470 ==
LOC: ENRESERVTM → ENRESERVDT → C.ACU 08:21 → C.3E 08:45 → UNDOADMIN 14:38
PROVIDERS: ADMIT Orthopaedic Surgery Sports Medicine; ATTEND Orthopaedic Surgery Sports Medicine
PROC: 0SRD0J9 Replacement of Left Knee Joint with Synthetic Substitute, Cemented, Open Approach (ICD-10-PCS; principal; 2017-01-16 10:30)
DX: M17.12 Unilateral primary osteoarthritis, left knee (principal); M21.162 Varus deformity, not elsewhere classified, left knee; M25.462 Effusion, left knee; R11.2 Nausea with vomiting, unspecified; D47.2 Monoclonal gammopathy; I10 Essential (primary) hypertension; K21.9 Gastro-esophageal reflux disease without esophagitis; D64.9 Anemia, unspecified; F41.9 Anxiety disorder, unspecified; F32.9 Major depressive disorder, single episode, unspecified; Z87.891 Personal history of nicotine dependence; Z96.651 Presence of right artificial knee joint; Z79.899 Other long term (current) drug therapy

== ENCOUNTER → 2017-03-06 | Day surgery (SDC) | payer BC ==
[2017-02-08 14:34] VITALS: Ht 165.1 cm; Wt 80.0 kg
[~2017-03-06] VITALS: Ht 165.1 cm; Wt 80.0 kg
[~2017-03-06] MED LIST changes: -ACETAMINOPHEN 500 MG TAB PO SCH; +ASPI325T45 PO; +ATROPINE SULFATE 0.1 MG/ML 5ML SYR IV PRN; -BUPIVACAINE 0.25% 30 ML VIAL ONE; +BUPIVACAINE 0.5 % 5 MG/1 ML MPF 30ML VIAL ONE; -BUPIVACAINE 0.5 % 5 MG/1 ML PF 10ML VIAL ONE; -BUPIVACAINE LIPOSOME 266 MG, BUPIVACAINE/EPINEPHRINE INJ 50 ML, SODIUM CHLORIDE 0.9% PF... INFIL SCH; -CEFAZOLIN 2000 MG/60 ML D5W 60 ML IV SCH; +CEFAZOLIN 2000 MG/60 ML D5W IV SCH; +CEPH500C2 PO; +DEXAMETHASONE SOD INJ 4 MG/ML VIAL ONE; +EpHEDrine SULFATE 50MG/5ML SYR ONE; +EpHEDrine SULFATE INJ 50 MG/ML AMP IV PRN; +EpHEDrine SULFATE INJ 50 MG/ML AMP ONE; -FAMOTIDINE 20 MG TAB PO SCH; +FENTANYL CITRATE INJ 50 MCG/1 ML 2 ML VIAL IV PRN; +FENTANYL CITRATE INJ 50 MCG/1 ML 2 ML VIAL ONE; +FLUMAZENIL 0.1 MG/1 ML 10 ML VIAL IV PRN; +FRRG PO; -GABAPENTIN 300 MG CAP PO SCH; +HYDR-5688 PO; +HYDROCODONE/ACETAMOPHEN 5/325MG TAB PO PRN; +HYDROmorphone INJ 2 MG/ML SYR/VIAL IV PRN; +LABETALOL HCL IV 5 MG/ML 20ML IV PRN; -LACTATED RINGER'S 1000ML 500 ML IV ONE; -LACTATED RINGER'S 1000ML IV SCH; +LIDOCAINE HCL 2% 2 ML VIAL (20MG/ML) ONE; +MEPERIDINE HCL 25 MG/ML CARP IV PRN; -METOCLOPRAMIDE HCL 10 MG TAB PO SCH; +MIDAZOLAM HCL 1 MG/ML 2ML VIAL ONE; +MISCCAP80 PO; +NALOXONE HCL 0.4 MG/1 ML VIAL/CARP IV PRN; -OMEG10007 PO; +ONDANSETRON INJ 2 MG/ML 2 ML VIAL IV PRN; +ONDANSETRON INJ 2 MG/ML 2 ML VIAL ONE; +PHENYLEPHRINE 100MCG/ML 5ML SYR IV PRN; +PROPOFOL IV EMULSION 10 MG/ML 20 ML VIAL IV ONE; -SCOPOLAMINE 1.5 MG TDSY TD SCH; +SODIUM CHLORIDE 0.9% 1000ML 1,000 ML IV SCH; -TRANEXAMIC ACID INJ 1,000 MG in SODIUM CHLORIDE 0.9% 100ML 100 ML IV SCH; +WATER, STERILE FOR INJ 10 ML VIAL ONE
--- NOTE | 2017-03-06 11:09 | [facility] Post Operative Brief Note ---
Immediate Operative Summary Operative Date Mar 06, 2017. Pre-Operative Diagnosis Right Breast Papillomas x3 Post-Operative Diagnosis Same Procedure(s) Performed Right Breast Biopsy With Needle Localization x [address] Malagon Sales Associate Surgeon(s) None Estimated Blood Loss 10ml Findings 3 separate specimens with additional tissue Specimens A. Right Breast Papilloma 12 o'clock (sent fresh to [facility] at 1020) , also addnl tissue deep at 12:00 B. Right Breast Papilloma #3 (sent fresh to [facility] at 1039)- superior to 12:00 site C. Right Breast Papilloma 9 o'clock (sent fresh to [facility] at 1039) D. Right Breast Papilloma Part D additional 9 o'clock (permanent) Anesthesia gen/ LMA Complication(s) None Disposition Recovery Room / PACU
--- NOTE | 2017-03-06 11:14 | Discharge Instructions-SurgCtr ---
Discharge Instructions Date of Service Mar 06, 2017. Visit Reason for Visit: Right Breast Mass, Papilloma Of Breast Discharge Discharge Diagnosis / Problem: papillomas Rt breast Discharge Goals Goal(s): Decrease discomfort, Improve function, Improve disease control Activity Recommendations Activity Limitations: as noted below Lifting Limitations: no more than 25 pounds (for 2 weeks) Exercise/Sports Limitations: until after follow-up appointment May Resume Sexual Activity: when tolerated Shower/Bathe: keep incision dry (for 2 days then may shower) Driving or Machine Use: resume 1 day after discharge SPECIAL CARE INSTRUCTIONS: * Cover incisions and change daily for comfort/drainage. * Leave steri strips in place * May use ibuprofen for pain as tolerated. * Expect some swelling and bruising. Call your doctor if: * Temperature above 101 degrees * Pain not relieved by pain medicine ordered * There is increased drainage or redness from any incision * You have any unanswered questions or concerns [phone]. FOLLOW UP VISIT: If not already scheduled, please call the office for a follow-up visit. for next week- suture removal OFFICE PHONE NUMBER: Dr. Malagon Office Anesthesia . Post Anesthesia Instructions: If you have had General Anesthesia or IV Sedation: * Do not drive today. * Resume driving when surgeon permits. * Do not make important decisions or sign legal documents today. * Call surgeon for: 1. Temperature elevations greater than 101 degrees F. 2. Uncontrollable pain. 3. Excessive bleeding. 4. Persistent nausea and vomiting. 5. Medication intolerance (nausea, vomiting or rash). * For nausea and vomiting use only clear liquids such as: tea, soda, bouillon until nausea subsides, then gradually increase diet as tolerated. * If you have any concerns or questions, call your surgeon's office. If physician is unavailable and it is an emergency, call 911 or go to the nearest emergency room. . Diet Recommendations Home Diet: resume previous diet Procedures Procedures Performed: Right Breast Biopsy With Needle Localization x 3 Pending Studies Studies pending at discharge: no Medical Emergencies . Who to Call and When: Medical Emergencies: If at any time you feel your situation is an emergency, please call 911 immediately. . Non-Emergent Contact Non-Emergency issues call your: Primary Care Provider, Surgeon . . "Provider Documentation" section prepared by Gigi Malagon.
[2017-03-06 11:43] VITALS: TEMP 36.5
--- NOTE | 2017-03-06 11:47 | OPERATIVE REPORT ---
DATE OF OPERATION: 03/06/2017 NAME OF OPERATION: Needle localization right breast biopsy x3. PREOPERATIVE DIAGNOSIS: Papilloma of the right breast. POSTOPERATIVE DIAGNOSIS: Same. STAFF SURGEON: Dr. Malagon. ANESTHESIA: General with 0.5% plain Marcaine. PROCEDURE: The patient was brought in the operating room and placed on the operating table in supine position. Her right breast had 3 needles placed at sites that were felt to be papillomas. A transverse incision was made across two of the needles carrying dissection down. One of the needles was 7.5 cm in length. It was at the 12 o'clock position in the breast. This tissue was taken with additional tissue taken deep. This was sent as the first specimen and the clip was within the tissue. I then proceeded to dissect superiorly to this for the second specimen which was actually marked as papilloma 3 and this tissue was sent and the tissue was within the specimen. I was able to dissect through the same incision to the 9 o'clock position and excised the tissue with the needle and this was sent as a 9 o'clock tissue and the clip was within this tissue. I also took additional tissue at the 9 o'clock position and it was sent as a permanent section. At this point, the deep tissue was reapproximated using 2-0 plain catgut suture then the skin reapproximated using 4-0 and 5-0 Monocryl suture with the knots left outside the skin and then Steri-Strips applied. The patient was transferred to recovery room in stable condition. I attest to the content of the Intraoperative Record and any orders documented therein. Any exceptio ns are noted below.
[2017-03-06 12:07] VITALS: BP 145/84; PULSE 71; O2SAT 97
--- NOTE | 2017-03-06 12:35 | Anesthesia Progress Nt - [facility] ---
Anesthesia Post Op Note Date & Time Mar 06, 2017 at 12:34 Vital Signs Pain Intensity: 2 Vital Signs Past 12 Hours Date Time Temp Pulse Resp B/P Pulse Ox O2 Delivery O2 Flow Rate FiO2 03/06/17 12:07 71 16 145/84 97 Room Air 03/06/17 11:43 36.5 73 16 148/81 98 Room Air 03/06/17 11:37 78 94 03/06/17 11:37 78 03/06/17 11:36 75 15 95 03/06/17 11:36 74 15 03/06/17 11:35 145/82 03/06/17 11:33 36.4 95 Room Air 03/06/17 11:31 74 12 93 03/06/17 11:31 74 12 03/06/17 11:30 147/83 03/06/17 11:28 78 15 95 03/06/17 11:28 79 15 03/06/17 11:25 149/80 03/06/17 11:23 85 15 03/06/17 11:23 85 15 94 03/06/17 11:22 82 13 03/06/17 11:22 83 13 95 03/06/17 11:20 148/87 03/06/17 11:17 85 13 96 03/06/17 11:17 85 13 03/06/17 11:15 148/79 03/06/17 11:12 77 9 03/06/17 11:12 75 9 99 03/06/17 11:11 83 17 99 03/06/17 11:11 82 17 03/06/17 11:10 140/89 03/06/17 11:06 90 03/06/17 11:06 90 148/82 96 03/06/17 11:06 36.5 89 16 148/82 98 Mask 8 03/06/17 07:55 36.5 72 16 152/80 97 Room Air Notes Mental Status: alert / awake / arousable, participated in evaluation Pt Amnestic to Procedure: Yes Nausea / Vomiting: adequately controlled Pain: adequately controlled Airway Patency, RR, SpO2: stable & adequate BP & HR: stable & adequate Hydration State: stable & adequate Anesthetic Complications: no major complications apparent
--- NOTE | 2017-03-06 15:16 | MAMMOGRAPHY REPORT ---
MULTIPLE NEEDLE LOCALIZATION RIGHT BREAST: 03/06/2017 CLINICAL HISTORY: 2 biopsy-proven papillomas in the right breast. Patient presents for preoperative needle and wire localization 2, prior to surgical excision. Please refer to the report from right breast ultrasound-guided needle localization performed the [facility] e time for full detail. IMPRESSION: NEEDLE LOCALIZATION Please refer to the report from right breast ultrasound-guided needle localization performed the [facility] e time for full detail. Arlette Villatoro M.D. ay/:03/06/2017 09:02:09 Literacy Specialist: Nevaeh SABA(Janes)(M), [facility]
--- NOTE | 2017-03-06 15:16 | MAMMOGRAPHY REPORT ---
NEEDLE LOCALIZATION RIGHT BREAST: 03/06/2017 CLINICAL HISTORY: 71-year-old woman with 2 biopsy-proven papillomas in the 9:00 and 12:00 axes of th e right breast. Patient presents for preoperative needle and wire localization for surgical excisio n. COMPARISON: Comparison is made to exams dated: 11/28/2016 mammogram, 11/28/2016 ultrasound biopsy, 2016 ultrasound biopsy, 11/14/2016 mammogram, 11/14/2016 ultrasound, and 11/03/2016 mammogram - [facility]. PATIENT CONSENT: The risks of the procedure were explained to the patient and informed consent was o btained. The patient denied a lidocaine allergy and also eating or drinking anything this morning t hat would preclude anesthesia. PROCEDURE DESCRIPTION: First repeat targeted ultrasound was performed in the 9:00 and 12:00 axes of the right breast to reevaluate the previously biopsied masses that yielded papillomas. The angular hypoechoic solid mass in the 9:00 right breast is well seen and the linear internal metallic biopsy marker is identified. In the 11:30 axis, a lobulated hypoechoic solid mass with possible internal b iopsy marker is identified. Both are amenable to ultrasound-guided preoperative needle localization . The skin of the right breast was cleansed with Betadine. 1% buffered lidocaine was first administer ed in the 9:00 axis surrounding the angular hypoechoic solid mass. A 5 cm Becker II needle and wir e combination was inserted into the breast through this mass and then locked in place with the hub o f the needle along the lateral border of the mass. Then the small mass in the 11:30 to 12:00 breast was identified. A second 5 cm Becker II needle and wire combination was inserted into this mass a nd also locked in place. Post ultrasound localization right CC and ML tomosynthesis images were obtained. On the MLO view th e Becker needle and wire placed in the 11:30 to 12:00 axis is located superior to the biopsy marker clip denoting the biopsy proven papilloma. I discussed these findings with the patient and offered her leaving the needle and placed so that this mass can also be removed at the time of excision of the other 2 masses. Therefore, the decision was made to leave this needle in place and I would perf orm targeting of the other/remaining biopsy marker clip with mammographic guidance, given that this was not well-seen on ultrasound. For the mammographic localization of the wing-shaped biopsy marker clip, the breast was placed in la teralmedial compression. Using an alpha numeric grid, the biopsy marker clip was targeted via a la teral approach using a 7.5 cm Becker II needle and wire combination. After confirmation of adequat e needle placement in the LM projection, the breast was placed in CC positioning and adequate depth was assessed. The wire was locked in placed with the hub of the needle at the level of the biopsy m arker clip. The entire procedure, every area localized and length of each needle were discussed with the operati ng surgeon prior to surgery. The patient tolerated the procedures well and she was sent to the oper ating room in satisfactory condition. 3 specimen radiographs were obtained. Within 2 of the specimen, the ribbon and wing-shaped biopsy m arker clips are identified, compatible with successful preoperative localization and subsequent surg ical excision. The third specimen contains a localizing needle and wire. This denotes the site of the newly visualized mass seen at the time of this localization. Final pathology is pending. IMPRESSION: NEEDLE LOCALIZATION Status post preoperative needle and wire localization 3 in the right breast. Final pathology is pe nding. The patient will receive notification of the results from her referring physician. Arlette Villatoro M.D. ay/:03/06/2017 14:32:15 Mixed Livestock Farmer: Nevaeh CORONADO)(M), [facility]
--- NOTE | 2017-03-06 15:18 | MAMMOGRAPHY REPORT ---
UNILATERAL RIGHT DIGITAL DIAGNOSTIC MAMMOGRAM TOMOSYNTHESIS: 03/06/2017 CLINICAL HISTORY: 2 biopsy-proven papillomas in the right breast. Patient presents for preoperative needle and wire localization prior to surgical excision. Please refer to the report from right breast ultrasound-guided needle localization performed the [facility] e time for full detail. IMPRESSION: Please refer to the report from right breast ultrasound-guided needle localization performed the [facility] e time for full detail. Approximately 10% of breast cancers are not detected with mammography. A negative mammographic repor t should not delay biopsy if a clinically suggestive mass is present. Arlette Villatoro M.D. ay/:03/06/2017 09:02:56 Head Automatic Sawyer: Nevaeh CORONADO)(M), [facility] BI-RADS Code: n/a
== END | disposition home or self-care (01) ==
LOC: X.SURG 07:41
PROVIDERS: ATTEND Surgery
DX: D24.1 Benign neoplasm of right breast (principal); D05.11 Intraductal carcinoma in situ of right breast; Z79.899 Other long term (current) drug therapy; I10 Essential (primary) hypertension; Z87.891 Personal history of nicotine dependence; Z83.3 Family history of diabetes mellitus; Z82.3 Family history of stroke; Z80.9 Family history of malignant neoplasm, unspecified

== ENCOUNTER → 2017-03-30 | Outpatient (CLI) | payer BC ==
[~2017-03-30] MED LIST changes: -ASPI325T45 PO; -ATROPINE SULFATE 0.1 MG/ML 5ML SYR IV PRN; -BUPIVACAINE 0.5 % 5 MG/1 ML MPF 30ML VIAL ONE; -CEFAZOLIN 2000 MG/60 ML D5W IV SCH; -DEXAMETHASONE SOD INJ 4 MG/ML VIAL ONE; -EpHEDrine SULFATE 50MG/5ML SYR ONE; -EpHEDrine SULFATE INJ 50 MG/ML AMP IV PRN; -EpHEDrine SULFATE INJ 50 MG/ML AMP ONE; -FENTANYL CITRATE INJ 50 MCG/1 ML 2 ML VIAL IV PRN; -FENTANYL CITRATE INJ 50 MCG/1 ML 2 ML VIAL ONE; -FLUMAZENIL 0.1 MG/1 ML 10 ML VIAL IV PRN; -FRRG PO; -HYDROCODONE/ACETAMOPHEN 5/325MG TAB PO PRN; -HYDROmorphone INJ 2 MG/ML SYR/VIAL IV PRN; -LABETALOL HCL IV 5 MG/ML 20ML IV PRN; -LACTATED RINGER'S 1000ML 1,000 ML IV SCH; -LIDOCAINE HCL 2% 2 ML VIAL (20MG/ML) ONE; -MEPERIDINE HCL 25 MG/ML CARP IV PRN; -MIDAZOLAM HCL 1 MG/ML 2ML VIAL ONE; -NALOXONE HCL 0.4 MG/1 ML VIAL/CARP IV PRN; -ONDANSETRON INJ 2 MG/ML 2 ML VIAL IV PRN; -ONDANSETRON INJ 2 MG/ML 2 ML VIAL ONE; -PHENYLEPHRINE 100MCG/ML 5ML SYR IV PRN; -PROPOFOL IV EMULSION 10 MG/ML 20 ML VIAL IV ONE; -SODIUM CHLORIDE 0.9% 1000ML 1,000 ML IV SCH; -WATER, STERILE FOR INJ 10 ML VIAL ONE
== END | disposition home or self-care (01) ==
LOC: C.PAPS 16:15
PROVIDERS: ATTEND Obstetrics & Gynecology
DX: Z12.4 Encounter for screening for malignant neoplasm of cervix (principal)

== ENCOUNTER 2017-04-04 08:02 | Observation (INO) | payer BC ==
[2017-03-30 14:18] VITALS: BMI 31.0
[2017-03-30 14:35] LABS: BASO % 0.7 %; BASO ABS # 0.04 K/uL (0-0.2); COMPLETE YES; HEMATOCRIT 38.7 % (37-47); IG% 0.2 %; LYMPH ABS # 1.79 K/uL (1.2-3.4); MEAN CELL VOLUME 89.2 fL (80-100); MEAN CORPUSCULAR HEMOGLOBIN 29.5 pg (25-34); MEAN CORPUSCULAR HGB CONC 33.1 g/dl (32-36); MEAN PLATELET VOLUME 9.1 fL (7.4-10.4); MONO % 7.4 %; NEUT % 58.7 %; PLATELET COUNT 240 K/uL (130-400); RED BLOOD COUNT 4.34 M/uL (4.2-5.4); WHITE BLOOD COUNT 5.97 K/uL (4.8-10.8)
--- NOTE | 2017-03-30 14:48 | PAT Medication Instructions ---
Service Date March 30, 2017. Current Home Medication List Calcium Carbonate (Tums), 1 TAB PO PRN Lorazepam (Ativan), 0.5 MG PO BID Losartan Potassium (Cozaar), 75 MG PO BID Metoprolol Succinate (Toprol Xl), 25 MG PO QAM Multiple Vitamins W/ Minerals (Centrum Silver Adult 50+), 1 PO NOON Probiotic Product (Probiotic), 1 TAB PO noon Saline (Saline Nasal [place]), 1 SPRAY AL BID Medication Instructions For Your Scheduled Surgery - Hold the following medications the morning of surgery: Probiotic Product (Probiotic), 1 TAB PO noon Multiple Vitamins W/ Minerals (Centrum Silver Adult 50+), 1 PO NOON Losartan Potassium (Cozaar), 75 MG PO BID Calcium Carbonate (Tums), 1 TAB PO PRN - Take the following medications the morning of surgery with a sip of water: Saline (Saline Nasal [place]), 1 SPRAY AL BID Metoprolol Succinate (Toprol Xl), 25 MG PO QAM Lorazepam (Ativan), 0.5 MG PO BID - Hold the following medications as scheduled the night before surgery: Losartan Potassium (Cozaar), 75 MG PO BID - Take the following medications as scheduled the night before surgery: Saline (Saline Nasal [place]), 1 SPRAY AL BID Lorazepam (Ativan), 0.5 MG PO BID If you have any questions please call us at [phone] (Marcy Rowley PA-C) or [phone] or [phone]
[2017-03-30 15:27] LABS: CALCIUM 9.2 mg/dl (8.5-10.1); CREATININE 1.1 mg/dl (0.60-1.20); POTASSIUM 3.8 mmol/L (3.5-5.1)
[2017-03-30 18:11] LABS: BUN/CREATININE RATIO 12.7 (10-20)
[~2017-04-04] VITALS: Ht 165.1 cm; Wt 79.5 kg
[2017-04-04] VITALS (8 sets, daily range): BP systolic 128–147; BP diastolic 74–87; PULSE 69–92; TEMP 36.1–36.9; O2SAT 91–95; Ht 165.1 cm; Wt 79.5 kg
[~2017-04-04 08:02] MED LIST changes: -ACET1TAB84 PO; +CEFAZOLIN 2000 MG/60 ML D5W IV SCH; -CEPH500C2 PO; -HYDR-5688 PO; -LACT1CAP6 PO; +LACTATED RINGER'S 1000ML 1,000 ML IV SCH
[2017-04-04] MEDS ORDERED: ONDANSETRON INJ 2 MG/ML 2 ML VIAL ONE (09:23)
[2017-04-04] MEDS ORDERED: FENTANYL CITRATE INJ 50 MCG/1 ML 2 ML VIAL ONE (09:23)
[2017-04-04] MEDS ORDERED: PROPOFOL IV EMULSION 10 MG/ML 20 ML VIAL IV ONE (09:23)
[2017-04-04] MEDS ORDERED: LIDOCAINE HCL 2% 2 ML VIAL (20MG/ML) ONE (09:23)
[2017-04-04] MEDS ORDERED: MIDAZOLAM HCL 1 MG/ML 2ML VIAL ONE (09:23)
[2017-04-04] MEDS ORDERED: DEXAMETHASONE SOD INJ 4 MG/ML VIAL ONE (09:23)
[2017-04-04] MEDS ORDERED: ISOSULFAN BLUE 10 MG/ML VIAL 5 ML ONE (10:54)
[2017-04-04] MEDS ORDERED: BUPIVACAINE 0.5 % 5 MG/1 ML MPF 30ML VIAL ONE (10:54)
[2017-04-04] MEDS ORDERED: EpHEDrine SULFATE INJ 50 MG/ML AMP ONE (11:34)
[2017-04-04] MEDS ORDERED: LACTATED RINGER'S 1000ML 1,000 ML IV SCH (12:06)
--- NOTE | 2017-04-04 12:06 | [facility] Post Operative Brief Note ---
Immediate Operative Summary Operative Date April 04, 2017. Pre-Operative Diagnosis Ductal Carcinoma insitu Right Breast Post-Operative Diagnosis Ductal Carcinoma insitu Right Breast Procedure(s) Performed Right Breast Lumpectomy Surgeon Dr. Gigi Malagon 3D Specialist Surgeon(s) Abraham Brady PA-c Estimated Blood Loss 10 ml Findings prior bx cavities Specimens Permanent Specimens Sent Fresh A: Right brest tissue(Long silk anterior/retroareolar--Short silk superior--Methylene Blue medial margin) B: Additional Medial tissue(Short silk superior--Long silk anterior--Methylene blue new medial margin) Anesthesia gen Complication(s) None Disposition Recovery Room / PACU
[2017-04-04] MEDS ORDERED: METHYLENE BLUE 0.5% 10 ML VIAL ONE (12:12)
[2017-04-04] MEDS ORDERED: HYDR-5688 PO (12:12)
[2017-04-04] MEDS ORDERED: CEPH500C2 PO (12:12)
[2017-04-04] MEDS ORDERED: ONDANSETRON INJ 2 MG/ML 2 ML VIAL IV PRN (12:15)
[2017-04-04] MEDS ORDERED: MoRPHine SULFATE 4 MG/ML 1 ML CARP\\VIAL IV PRN (12:15)
[2017-04-04] MEDS ORDERED: PROMETHAZINE HCL INJ 25 MG in SODIUM CHLORIDE 0.9% 50ML 50 ML IV PRN (12:15)
[2017-04-04] MEDS ORDERED: MoRPHine SULFATE 2 MG/ML CARP IV PRN (12:15)
[2017-04-04] MEDS ORDERED: HYDROCODONE/ACETAMOPHEN 5/325MG TAB PO PRN ×2 (12:15)
--- NOTE | 2017-04-04 12:56 | Anesthesiology Progress Note ---
Anesthesia Post Op Note Date & Time April 04, 2017 at 12:56 Vital Signs Pain Intensity: 1 Vital Signs Past 12 Hours Date Time Temp Pulse Resp B/P Pulse Ox O2 Delivery O2 Flow Rate FiO2 04/04/17 12:44 66 16 96 04/04/17 12:44 36.5 66 16 04/04/17 12:40 127/71 04/04/17 12:39 68 12 96 04/04/17 12:39 68 12 04/04/17 12:35 134/77 04/04/17 12:34 73 13 91 04/04/17 12:34 74 13 04/04/17 12:32 134/74 04/04/17 12:30 134/74 04/04/17 12:29 69 15 04/04/17 12:29 70 15 97 04/04/17 12:28 68 16 98 04/04/17 12:28 69 16 04/04/17 12:25 134/73 04/04/17 12:23 71 13 04/04/17 12:23 71 13 97 04/04/17 12:22 74 15 04/04/17 12:22 74 15 97 04/04/17 12:20 132/71 04/04/17 12:17 83 16 98 04/04/17 12:17 81 16 04/04/17 12:15 137/75 04/04/17 12:12 36 89 16 133/69 98 Mask 10 04/04/17 12:12 76 14 04/04/17 12:12 76 14 133/69 97 04/04/17 08:37 36.7 72 18 137/82 95 Room Air Notes Mental Status: alert / awake / arousable, participated in evaluation Pt Amnestic to Procedure: Yes Nausea / Vomiting: adequately controlled Pain: adequately controlled Airway Patency, RR, SpO2: stable & adequate BP & HR: stable & adequate Hydration State: stable & adequate Anesthetic Complications: no major complications apparent
[2017-04-04] MEDS ORDERED: PROMETHAZINE HCL INJ 12.5 MG in SODIUM CHLORIDE 0.9% 50ML 50 ML IV PRN (13:00)
--- NOTE | 2017-04-04 13:27 | Anesthesiology Progress Note ---
Anesthesia Post Op Note Date & Time April 04, 2017 at 13:26 Vital Signs Pain Intensity: 1 Vital Signs Past 12 Hours Date Time Temp Pulse Resp B/P Pulse Ox O2 Delivery O2 Flow Rate FiO2 04/04/17 13:00 68 16 04/04/17 13:00 68 16 137/82 96 04/04/17 12:55 67 13 132/77 96 04/04/17 12:55 67 13 04/04/17 12:50 69 14 132/78 96 04/04/17 12:50 68 14 04/04/17 12:45 67 13 04/04/17 12:45 67 13 134/74 96 04/04/17 12:44 66 16 96 04/04/17 12:44 36.5 66 16 04/04/17 12:40 127/71 04/04/17 12:39 68 12 96 04/04/17 12:39 68 12 04/04/17 12:35 134/77 04/04/17 12:34 73 13 91 04/04/17 12:34 74 13 04/04/17 12:32 134/74 04/04/17 12:30 134/74 04/04/17 12:29 69 15 04/04/17 12:29 70 15 97 04/04/17 12:28 68 16 98 04/04/17 12:28 69 16 04/04/17 12:25 134/73 04/04/17 12:23 71 13 04/04/17 12:23 71 13 97 04/04/17 12:22 74 15 04/04/17 12:22 74 15 97 04/04/17 12:20 132/71 04/04/17 12:17 83 16 98 04/04/17 12:17 81 16 04/04/17 12:15 137/75 04/04/17 12:12 36 89 16 133/69 98 Mask 10 04/04/17 12:12 76 14 04/04/17 12:12 76 14 133/69 97 04/04/17 08:37 36.7 72 18 137/82 95 Room Air Notes Mental Status: alert / awake / arousable, participated in evaluation Pt Amnestic to Procedure: Yes Nausea / Vomiting: adequately controlled Pain: adequately controlled Airway Patency, RR, SpO2: stable & adequate BP & HR: stable & adequate Hydration State: stable & adequate Anesthetic Complications: no major complications apparent
--- NOTE | 2017-04-04 13:42 | OPERATIVE REPORT ---
DATE OF OPERATION: 04/04/2017 NAME OF OPERATION: Right breast lumpectomy. PREOPERATIVE DIAGNOSIS: Ductal carcinoma in situ, right breast. POSTOPERATIVE DIAGNOSIS: Same. STAFF SURGEON: Dr. Gigi Malagon. PRODUCT TECHNICIAN: Abraham Brady PA-C INDICATIONS FOR OPERATION: The patient had undergone previous breast biopsy x3 with one of the sites being at the 9 o'clock retroareolar position with tissue in that area showing evidence of DCIS. She is now for reexcision of that area. DESCRIPTION OF PROCEDURE: The patient was brought into the operating room and placed on the operating table in the supine position. Her right arm was extended onto an arm board. Her right breast was prepped and draped in the usual fashion. She had a transverse incision in the upper outer part of the breast. At this point, skin and subcutaneous tissue at the 9 o'clock position were anesthetized. Transverse incision was made lateral to the areola, carrying dissection down identifying the biopsy cavity at the 9 o'clock position. This was opened with the dissection carried laterally and then the medial aspect of the biopsy cavity identified, which was where the prior DCIS was found. This tissue was excised and then marked with a short silk suture superior, long silk suture anterior and methylene blue on the new medial/retroareolar margin. I did then take additional medial tissue, which superiorly communicated with the 12 o'clock biopsy site. This tissue was then marked with a short silk suture superior, long silk suture anterior and methylene blue as the new medial margin. At this point, the deep tissue was reapproximated using 2-0 plain catgut suture and the skin reapproximated using subcuticular 5-0 Monocryl with Steri-Strips. Dressing applied and patient transferred to recovery room in stable condition. I attest to the content of the Intraoperative Record and any orders documented therein. Any exceptio ns are noted below.
[2017-04-04] MEDS ORDERED: IV FLUIDS COMPLETED PRN (13:45)
[2017-04-04] MEDS: CEFAZOLIN IV 1,000 MG in DEXTROSE 5% 50ML 50 ML IV SCH (19:06)
[2017-04-04] MEDS: LOSARTAN POTASSIUM 50 MG TAB PO SCH (20:18)
[2017-04-04] MEDS: LORAZEPAM 0.5 MG TAB PO SCH (20:18)
[2017-04-05 00:26] VITALS: TEMP 36.4
[2017-04-05] MEDS: CEFAZOLIN IV 1,000 MG in DEXTROSE 5% 50ML 50 ML IV SCH ×2 (01:46→10:33)
[2017-04-05 03:35] VITALS: BP 138/77; PULSE 75; TEMP 36.6; O2SAT 97
--- NOTE | 2017-04-05 03:57 | INTERNAL MEDICINE CONSULTATION ---
DATE OF CONSULTATION: 04/04/2017 A 71-year-old female admitted today by Dr. Gigi Mlaagon. She underwent a right breast lumpectomy. The patient had her yearly mammogram. There was abnormality noted in her right breast. Initially, she had a biopsy. She had evidence of intraductal papilloma. She did undergo a breast biopsy. Actually, 3 sites were identified. One of them was a ductal carcinoma in situ. She needed reexcision and she was scheduled for today and underwent the procedure this morning, which was well tolerated. The patient is scheduled to see Dr. Nash in the future for recommendation regarding her long-term treatment. Her medical problems include: 1. Arterial hypertension. 2. Monoclonal gammopathy of undetermined significance. 3. Osteoarthritis. 4. Status post bilateral total knee replacements. 5. Irritable bowel syndrome. 6. Anxiety. CURRENT MEDICATIONS: Include, 1. Losartan 75 mg twice a day. 2. Metoprolol succinate 25 mg daily. 3. Multivitamin 1 daily. 4. Lorazepam 0.5 mg twice a day. 5. Probiotic 1 daily. Overall, she is doing well. She is resting comfortably. She has no pain whatsoever that she is complaining of. She denied any headache or dizziness or lightheadedness. She wears glasses. No earache, sore throat or neck pain. Denied any chest pain. No shortness of breath. No pain at the site of her surgery in the right breast. No abdominal pain, no nausea, and no vomiting. No problem with her bowel movements or urination. PHYSICAL EXAMINATION: GENERAL: Well developed, in no distress. Her recorded weight is 79.5 kg, height 165.1 cm, and BMI 29.2. VITAL SIGNS: Blood pressure 128/76, pulse 76, respirations 16, temperature 36.4, and oxygen saturation 95% on room air. SKIN: Warm and dry. No rash. Areas of benign keratosis. HEENT: She wears glasses. No mucosal abnormalities. NECK: Supple. Nontender. No adenopathy, no thyromegaly, and no JVD. No bruit. HEART: Regular heart sounds. No murmur, rub, or gallop. LUNGS: Clear. BREASTS: Surgical dressing, right breast. ABDOMEN: Soft and nontender. BACK: No spinal tenderness. EXTREMITIES: Surgical scar, both knees. No edema, clubbing or cyanosis. Good pulses. ASSESSMENT: 1. Ductal carcinoma in situ, right breast. 2. Papillary ductal carcinoma, also right breast. 3. Arterial hypertension. 4. Monoclonal gammopathy of undetermined etiology. Has not required any treatment. 5. Arterial hypertension. 6. Osteoarthritis. 7. Anxiety. PLAN: 1. Overall, she is doing quite well. She is continued on her oral medications. She has no pain or discomfort. 2. Anticipating discharge tomorrow if her condition remains stable.
--- NOTE | 2017-04-05 06:14 | Discharge Instructions ---
Discharge Instructions Date of Service April 05, 2017. Admission Reason for Admission: Right Breast Mass , Dcis Of Breast Discharge Discharge Diagnosis / Problem: Ductal carcinoma insitu Rt breast Discharge Goals Goal(s): Decrease discomfort, Improve function, Improve disease control Activity Recommendations Activity Limitations: as noted below Lifting Limitations: no more than 25 pounds Exercise/Sports Limitations: until after follow-up appointment May Resume Sexual Activity: when tolerated Shower/Bathe: keep incision dry (may shower over incision 04/06) Driving or Machine Use: resume 1 day after discharge SPECIAL CARE INSTRUCTIONS: * Cover incisions and change daily for comfort/drainage. * Leave steri strips in place * May use ibuprofen for pain as tolerated. * Expect some swelling and bruising. Call your doctor if: * Temperature above 101 degrees * Pain not relieved by pain medicine ordered * There is increased drainage or redness from any incision * You have any unanswered questions or concerns [phone]. FOLLOW UP VISIT: If not already scheduled, please call the office for a follow-up visit. for 2 weeks- check up, no sutures to remove OFFICE PHONE NUMBER: Dr. Malagon Office . Current Hospital Diet Patient's current hospital diet: Regular Diet Discharge Diet Recommended Diet: Regular Diet Procedures Procedures Performed: Right Breast Lumpectomy Pending Studies Studies pending at discharge: no Medical Emergencies . Who to Call and When: Medical Emergencies: If at any time you feel your situation is an emergency, please call 911 immediately. . Non-Emergent Contact Non-Emergency issues call your: Primary Care Provider, Surgeon . "Provider Documentation" section prepared by Gigi Malagon. . VTE Core Measure Inpt VTE Proph given/why not?: SCD's
[2017-04-05 07:26] VITALS: BP 135/83; PULSE 68; TEMP 36.6; O2SAT 94
--- NOTE | 2017-04-05 07:52 | DISCHARGE SUMMARY ---
DATE OF DISCHARGE: 04/05/2017. PRINCIPAL DIAGNOSIS: Ductal carcinoma in situ, right breast. HISTORY OF PRESENT ILLNESS: The patient is a 71-year-old female who underwent a biopsy of the right breast x3 with one of the biopsies showing a small area of DCIS. She was brought into the hospital for reexcision. HOSPITAL COURSE: The patient was brought into the hospital on 04/04/2017 where she underwent a right partial mastectomy which was essentially reexcision of a prior biopsy site of the right breast. She has done very well and was felt stable for discharge home to be followed in the surgical clinic in 2 weeks and also be followed up by Dr. Ramos and also oncology.
[2017-04-05] MEDS: LOSARTAN POTASSIUM 50 MG TAB PO SCH (07:58)
[2017-04-05] MEDS: LORAZEPAM 0.5 MG TAB PO SCH (07:58)
--- NOTE | 2017-04-05 08:23 | Anesthesiology Progress Note ---
Anesthesia Post Op Note Date & Time April 05, 2017 at 08:23 Vital Signs Pain Intensity: 0.0 Vital Signs Past 12 Hours Date Time Temp Pulse Resp B/P Pulse Ox O2 Delivery O2 Flow Rate FiO2 04/05/17 07:26 36.6 68 20 135/83 94 Room Air 04/05/17 03:35 36.6 75 16 138/77 97 Room Air 04/05/17 00:26 36.4 04/05/17 00:05 Room Air 04/04/17 23:00 36.1 75 16 133/74 93 Room Air Notes Mental Status: alert / awake / arousable, participated in evaluation Anesthetic Complications: no major complications apparent
[2017-04-05] MEDS ORDERED: METOPROLOL SUCC 25MG EXT REL TAB PO SCH (09:00)
[2017-04-05 11:03] VITALS: BP 135/83; PULSE 68; TEMP 36.6; O2SAT 94
== END 2017-04-05 11:45 | disposition home or self-care (01) ==
LOC: ENRESERVTM → ENRESERVDT → C.ACU 08:02 → C.MSN 12:09
PROVIDERS: ADMIT Surgery; ATTEND Surgery
DX: D05.11 Intraductal carcinoma in situ of right breast (principal); M19.90 Unspecified osteoarthritis, unspecified site; F41.9 Anxiety disorder, unspecified; N63 Unspecified lump in breast; D05.10 Intraductal carcinoma in situ of unspecified breast; I10 Essential (primary) hypertension; D47.2 Monoclonal gammopathy; C88.0 Waldenstrom macroglobulinemia; Z83.3 Family history of diabetes mellitus; Z82.3 Family history of stroke; Z82.49 Family history of ischemic heart disease and other diseases of the circulatory system; Z87.891 Personal history of nicotine dependence; Z79.899 Other long term (current) drug therapy

== ENCOUNTER → 2017-09-19 | Outpatient (CLI) | payer BC ==
[~2017-09-19] MED LIST changes: -CEFAZOLIN 2000 MG/60 ML D5W IV SCH; +CEPH500C2 PO; +HYDR-5688 PO; -LACTATED RINGER'S 1000ML 1,000 ML IV SCH
--- NOTE | 2017-09-20 14:33 | MAMMOGRAPHY REPORT ---
BILATERAL DIGITAL DIAGNOSTIC MAMMOGRAM TOMOSYNTHESIS WITH CAD AND TARGETED BILATERAL ULTRASOUND: 08/27 CLINICAL HISTORY: 71-year-old woman with a history of right breast DCIS, low-grade, diagnosed at surg [facility] excisional biopsy of a papilloma in the 9:00 axis. She presents for first evaluation after surg kali. Also palpable lump in the 6:00 subareolar left breast. TECHNIQUE: Bilateral breast tomosynthesis in addition to standard 2D mammography was performed. Spot magnification right cc and ML views were also obtained. Current study was also evaluated with a [employer] Aided Detection (CAD) system. COMPARISON: Comparison is made to exams dated: 03/06/2017 mammogram, 03/06/2017 localization, 7 localization, 11/28/2016 mammogram, 11/28/2016 ultrasound biopsy, and 11/28/2016 ultrasound biopsy - [facility]. BREAST COMPOSITION: There are scattered areas of fibroglandular density in both breasts. FINDINGS: There is expected architectural distortion in the anterior right breast, at the site of pr ior surgical excisions of 3 masses, 2 of which show papillomas in the third heel that a fibroadenoma. One of the papillomas had associated low-grade DCIS. There is a 6.5 mm nodular asymmetry in the right breast along the posterior nipple line on the MLO vi ew, 4.2 cm distal to the nipple (MLO tomosynthesis slice /), for which additional sonographic manuel luation was performed. No other obvious new mass, unexpected architectural distortion, asymmetry or suspicious microcalcifications are seen. On the spot magnification views of the right breast, there are approximately 3 round and punctate microcalcifications in the lower outer anterior breast, which could be related to prior surgery. However a short interval follow-up right diagnostic mammogram inc luding spot magnification views is recommended to ensure stability in 6 months. A linear scar marker overlies the left breast. There are a few scattered benign-appearing calcificat ions and a stable asymmetry in the inferior breast. A triangular probable marker overlies the 7:00 a nterior periareolar left breast. No obvious new mass, focal area of distortion, developing asymmetry or suspicious macrocalcifications are seen in the left breast. Targeted ultrasound was performed in the area of palpable lump pointed out by the patient, in the 6:0 0 periareolar subareolar left breast. There is a mixed echogenicity solid and cystic appearing mass in the 6:00 periareolar left breast, which may correlate as palpated although it is difficult to disc analia given the subareolar location. It measures 5.3 x 3.5 x 6.7 mm. Nevertheless given this appearan ce this could represent a papillary lesion and definitive characterization with an ultrasound-guided core biopsy is recommended. Sonographic evaluation performed throughout the superior right breast de monstrates normal-appearing scar tissue from the 9:00 to 12:00 axes. There is a round hypoechoic cici id appearing mass in the 3:00 periareolar right breast, subdermal in location, which measures 2.6 x 2 .1 right 2.9 mm. This is indeterminate and definitive characterization with an ultrasound-guided cor e biopsy is recommended. No other discrete solid or cystic mass is seen in the superior right breast to correlate with the nodular asymmetry seen on the right MLO view and that most likely represented normal overlapping fibrous glandular tissue. IMPRESSION: ACR BI-RADS CATEGORY 4: SUSPICIOUS, TARGETED ULTRASOUND ACR BI-RADS CATEGORY 4: SUSPICIO US 1. Ultrasound that a core biopsy is recommended for an indeterminate solid versus cystic subdermal 2 .9 mm mass in the 3:00 periareolar right breast, and also for a mixed solid and cystic 6.7 mm mass in the 6:00 periareolar subareolar left breast, which may correlate with a palpable nodule pointed out by the patient. 2. There are otherwise expected post surgical changes in the right breast with approximately 3 new b enign-appearing calcifications near the surgical site. These are most likely dystrophic in nature bu t a short interval follow-up diagnostic mammogram including spot magnification views is recommended i n 6 months, or at cessation of radiation therapy. These results and recommendations were discussed with the patient at the time of the exam. She tenta tively scheduled the bilateral breast biopsies prior to leaving our department. Approximately 10% of breast cancers are not detected with mammography. A negative mammographic report should not delay biopsy if a clinically suggestive mass is present. Arlette Villatoro M.D. ay/:09/19/2017 15:11:22 Curriculum Writer: Yin Larios, [facility] letter sent: Abnormal 4/5 BI-RADS Code: ACR BI-RADS Category 4: Suspicious Ultrasound BI-RADS: ACR BI-RADS Category 4: Suspici ous
== END | disposition home or self-care (01) ==
LOC: C.MAMM 13:44
PROVIDERS: ATTEND Internal Medicine
DX: N63.20 Unspecified lump in the left breast, unspecified quadrant (principal); N63.10 Unspecified lump in the right breast, unspecified quadrant; R92.1 Mammographic calcification found on diagnostic imaging of breast; N64.89 Other specified disorders of breast

== ENCOUNTER → 2017-10-10 | Outpatient (CLI) | payer BC ==
[~2017-10-10] MED LIST changes: -CEPH500C2 PO; -HYDR-5688 PO
--- NOTE | 2017-10-10 15:30 | Discharge Instructions ---
Discharge Instructions Procedure Procedure Date: Oct 10, 2017. Reason for visit: Bilateral Masses. Discharge Discharge Date: Oct 10, 2017. Discharge Diagnosis: Post left breast ultrasound guided core biopsy. No biopsy on right as mass decreased in size Instructions Activity Recommendations: Additional Limitations (see below) Return to School/Work: no limitations Recommended Home Diet: No Limitations Provider Instructions: ACTIVITY RECOMMENDATIONS: * No lifting, pushing, pulling or exercising the affected side for three days. RETURN TO SCHOOL/WORK: * You may return to work/school after the procedure, but do not perform any strenuous activities for 24 to 48 hours. MEDICATIONS: * Tylenol (two 325 mg) every four to six hours if needed for mild pain (if not allergic to Tylenol). DIET: * Resume previous diet. SPECIAL CARE INSTRUCTIONS: * Keep biopsy site dry for 24 hours. May shower after 24 hours, but do not soak (bathe) incision. * May remove Tegaderm (plastic patch) tomorrow AFTER showering. * Leave the steri-strips on for one week. Allow the steri-strips to fall off by themselves. If not off after one week, you may remove them. You may place a Bandaid crosswise over the strips, if desired. * Apply ice 10 minutes on and 10 minutes off as needed. * Wear a bra at bedtime to sleep more comfortably for 2-3 days. * Your referring physician should have the results after approximately 5 to 7 business days. * Call for unusual bleeding, fever, drainage, etc or if you have any questions call [phone] during normal business hours or after hours call Dr Villatoro, . FOLLOW UP VISIT: Follow-up with Referring Physician as scheduled. Allergies Coded Allergies: Adhesives (Verified Allergy, Unknown, SOME BANDAIDS GIVE PT RED SKIN, 04/04) Ciprofloxacin (Verified Allergy, Unknown, itching, 04/04/17) Maximo Albert Recommendations: Call your doctor if: * Temperature above 101 degrees * Pain not relieved by pain medicine ordered * There is increased drainage or redness from any incision * You have any unanswered questions or concerns. Your Doctors Instructions noted above were prepared by provider Arlette Villatoro. Patient Signature Section: Patient Instructions Signature Page Ayde Oneill Patient (or Guardian) Signature/Date: I have read and understand the instructions given to me by my caregivers. Caregiver/RN/Doctor Signature/Date: The above-named patient and/or guardian has received patient instructions on this date. + Original Patient Signature Page (only) stays with chart. Please make copy for patient.
--- NOTE | 2017-10-11 15:31 | MAMMOGRAPHY REPORT ---
UNILATERAL LEFT DIGITAL DIAGNOSTIC MAMMOGRAM TOMOSYNTHESIS: 10/10/2017 CLINICAL HISTORY: Status post ultrasound-guided core biopsy of a mixed echogenicity 5 mm mass in the 6:00 periareolar/subareolar left breast. A right breast biopsy was canceled given that the lesion id entified in the 3:00 periareolar breast had decreased in size. Please refer to the report from left breast ultrasound guided core biopsy performed at the same time for full detail. IMPRESSION: POST PROCEDURE IMAGING FOR MARKER PLACEMENT Please refer to the report from left breast ultrasound guided core biopsy performed at the same time for full detail. Approximately 10% of breast cancers are not detected with mammography. A negative mammographic report should not delay biopsy if a clinically suggestive mass is present. Arlette Villatoro M.D. ay/:10/10/2017 16:42:13 Retinal Surgeon: Yin CORONADO)(Cathy), [facility] BI-RADS Code: Post Procedure Imaging For Marker Placement
--- NOTE | 2017-10-11 15:31 | MAMMOGRAPHY REPORT ---
ULTRASOUND GUIDED BIOPSY LEFT BREAST: 10/10/2017 CLINICAL HISTORY: 72-year-old woman with a personal history of right breast DCIS status post surgery. She presented on 09/19/2017 with a palpable abnormality in the left breast and was found to have a 5 mm mixed echogenicity mass in the 6:00 periareolar/subareolar left breast, thought to correlate as palpated. She presents for ultrasound-guided core biopsy. During that diagnostic workup, right judy st ultrasound was also performed which demonstrated a small hypoechoic solid versus cystic mass in th e 3:00 periareolar right breast which measured 2.9 x 2.6 x 2.1 mm. During targeted ultrasound to ree valuate both areas prior to biopsy, the right breast mass had significantly decreased in size, only c urrently measuring 1.8 x 1.8 mm. This interval decrease in size confirms benignity and no biopsy was performed in the right breast. COMPARISON: Comparison is made to exams dated: 09/19/2017 mammogram, 09/19/2017 ultrasound, 7 mammogram, 03/06/2017 localization, 03/06/2017 localization, and 11/28/2016 mammogram - [facility]. PATIENT CONSENT: The procedure, risks and benefits were discussed with the patient and informed conse nt was obtained both verbally and in writing. Specific risks to this procedure include: bleeding, in fection, puncture of adjacent structure, nontarget biopsy, sampling error, pain, metal allergy and me dication reaction. PROCEDURE DESCRIPTION: A time out was performed and the left breast was agreed as the site of biopsy. The skin was prepped and draped in the usual sterile fashion. The solid mixed echogenicity 5 mm mass in the 6:00 periareolar/subareolar left breast was chosen as the target for biopsy. Subcutaneous and intraparenchymal 1% buffered lidocaine, with and without epinephrine, was administered as local anes thesia. A skin incision was made. Through the incision, 4 samples were taken with a 14 gauge Achieve biopsy device. A ribbon shaped metallic marker was placed at the biopsy site. Hemostasis was achieve d after manual compression. The patient tolerated the procedure well and there was no immediate compl ication. The samples were sent to the pathology department in an appropriately labeled container. Postprocedure left CC and ML views were obtained. A new ribbon-shaped biopsy marker clip is seen in the 6:00 periareolar/subareolar left breast. No significant postbiopsy hematoma is identified. IMPRESSION: ULTRASOUND GUIDED BIOPSY 1. Status post ultrasound guided core biopsy of a mixed echogenicity 5 mm mass in the 6:00 periareol ar/subareolar and subdermal left breast. 2. A previously observed hypoechoic 2.9 mm mass in the 3:00 periareolar subdermal right breast has decreased in size in the interval between the diagnostic ultrasound performed September 19 and today's exam. The interval decrease in size confirms benignity and no biopsy was performed on the right. The patient will receive notification of the biopsy results from her referring physician. Arlette Villatoro M.D. ay/:10/10/2017 16:45:49 Brim Plater: Yin CORONADO)(Cathy), [facility]
== END | disposition home or self-care (01) ==
LOC: C.MAMM 14:34
PROVIDERS: ATTEND Internal Medicine
DX: N60.92 Unspecified benign mammary dysplasia of left breast (principal); N60.32 Fibrosclerosis of left breast

== ENCOUNTER → 2018-03-15 | Outpatient (CLI) | payer BC ==
[~2018-03-15] MED LIST changes: -METO25TA3 PO; +METO25TA4 PO; +SALI-3 NAE; -SALI1SPR3 NAE
[2018-03-18 18:08] LABS: FECAL OCCULT BLOOD #1 NEGATIVE (NEGATIVE); FECAL OCCULT BLOOD #2 NEGATIVE (NEGATIVE); FECAL OCCULT BLOOD #3 NEGATIVE (NEGATIVE)
== END | disposition home or self-care (01) ==
LOC: C.LABSPEC 17:31
PROVIDERS: ATTEND Internal Medicine
DX: Z12.11 Encounter for screening for malignant neoplasm of colon (principal)

== ENCOUNTER → 2018-03-20 | Outpatient (CLI) | payer BC ==
--- NOTE | 2018-03-20 15:31 | MAMMOGRAPHY REPORT ---
BILATERAL DIGITAL DIAGNOSTIC MAMMOGRAM TOMOSYNTHESIS WITH CAD: 03/20/2018 CLINICAL HISTORY: 72-year-old woman with a personal history of right breast papillomas and DCIS, stat us post surgical excision. Patient did not undergo radiation therapy after the diagnosis of DCIS whi ch was in February 2017. A recent ultrasound-guided core biopsy in the lower inner anterior left breast performed in September 2017 yielded benign fibrosis. She presents for close follow-up imaging in [facility] breasts. TECHNIQUE: Bilateral breast tomosynthesis in addition to standard 2D mammography was performed. Curre nt study was also evaluated with a Computer Aided Detection (CAD) system. COMPARISON: Comparison is made to exams dated: 10/10/2017 mammogram, 10/10/2017 ultrasound biopsy, 1 mammogram, 09/19/2017 ultrasound, 03/06/2017 mammogram, and 11/03/2016 mammogram - [facility]. BREAST COMPOSITION: There are scattered areas of fibroglandular density in both breasts. FINDINGS: There is expected architectural distortion in the upper outer quadrant of the left breast, at the site of prior surgical excision. There is also expected architectural distortion with new sut ural calcification in the upper outer anterior/subareolar right breast, at the site of surgical excis ion. There is a stable ribbon-shaped biopsy marker clip in the lower inner anterior left breast, and stable asymmetry in the inferior middle one third of the left breast on the MLO view, that appears s table dating back to at least 2008, therefore likely benign. No new suspicious masses, asymmetries, unexpected architectural distortion or suspicious calcifications are seen bilaterally. Given that th e patient did not undergo right breast radiation treatment after lumpectomy, would continue with clos e follow-up imaging including diagnostic mammograms and possible ultrasound in 6 months and would als o recommend additional screening with breast MRI, which can also be performed in 6 months. IMPRESSION: ACR-BI-RADS CATEGORY 3: PROBABLY BENIGN Stable mammographic appearance of the breasts including postsurgical and postbiopsy changes in each b reast, without definite mammographic evidence of malignancy. Another close follow-up bilateral diagn ostic mammogram with possible ultrasound is recommended to ensure stability in 6 months. Would also recommend additional screening with breast MRI, given the personal history of right breast DCIS witho ut radiation therapy. These results and recommendations were discussed with the patient at the time of the exam. She tenta tively scheduled the breast MRI appointment and follow-up diagnostic mammogram prior to leaving our [facility]. Approximately 10% of breast cancers are not detected with mammography. A negative mammographic report should not delay biopsy if a clinically suggestive mass is present. Arlette Villatoro M.D. ay/:03/20/2018 12:26:54 Route Sales Delivery Driver: Yin SABA(Janes)(Cathy), [facility] letter sent: Follow Up Recommended 3 BI-RADS Code: ACR-BI-RADS Category 3: Probably Benign
== END | disposition home or self-care (01) ==
LOC: C.MAMM 11:29
PROVIDERS: ATTEND Internal Medicine
DX: Z85.3 Personal history of malignant neoplasm of breast (principal)

== ENCOUNTER 2023-12-18 16:32 | Inpatient (IN) ==
[2023-12-18] MEDS ORDERED: SODIUM CHLORIDE 0.9% 500 ML IV STA (16:38)
[2023-12-18] MEDS ORDERED: dilTIAZem HCl 5 MG/ML 5 ML VIAL IV STA ×2 (16:40→17:15)
[2023-12-18 17:01] LABS: Basophils # (auto) 0.06 K/uL (0.00-0.20); Basophils % (auto) 0.7 %; Eosinophils # (auto) 0.21 K/uL (0.00-0.50); Eosinophils % (auto) 2.6 %; Hematocrit (blood only) 35.4 % (37.0-47.0); Hemoglobin 12.1 g/dl (12.0-16.0); Immature Granulocytes # (auto) 0.03 K/uL (0.01-0.20); Immature Granulocytes % (auto) 0.4 %; Lymphocytes # (auto) 2.59 K/uL (1.20-3.40); Mean Corpuscular Hemoglobin 29.8 pg (25.0-34.0); Mean Corpuscular Hgb Conc 34.2 g/dL (32.0-36.0); Mean Corpuscular Volume 87.2 fL (80.0-100.0); Mean Platelet Volume 9.2 fL (9.4-12.4); Monocytes # (auto) 0.95 K/uL (0.11-0.59); Monocytes % (auto) 11.7 %; Neutrophils # (auto) 4.26 K/uL (1.40-6.50); Neutrophils % (auto) 52.6 %; Platelet Count 254 K/uL (130-400); RDW Coefficient of Variation 12.6 % (11.5-14.5); RDW Standard Deviation 40.3 fL (36.4-46.3); Red Blood Count 4.06 M/uL (4.20-5.40)
--- NOTE | 2023-12-18 17:07 | Emergency Department Note ---
Impression & Plan Atrial fibrillation with rapid ventricular response, Heart palpitations ED Provider Note NAME: ADAL WALTER AGE: 78 SEX: F : 1945 ARRIVES VIA: Ambulance INFORMANT: Patient, EMS ED PROVIDER(S): Low Parker DO CHIEF COMPLAINT: Palpitations HPI: The patient is a 78-year-old female who presented to the emergency department for an evaluation of palpitations. The patient states that she has been having problems with abdominal pain for the last few weeks. She was seen in our facility for similar complaints. The patient had a normal workup in our emergency department recently. She was scheduled for a follow-up appoint with her primary care physician. Her vital signs showed that she was tachycardic. 911 was called and the patient was sent to the emergency department for further evaluation. She denies having any chest pain. She has no history of dysrhythmia. The patient denies having any lower extremity swelling. She denies having any shortness of breath. ROS: See above HPI for pertinent positives & negatives. A total of 10 systems reviewed and were otherwise negative. PAST MEDICAL HISTORY: See Below PAST SURGICAL HISTORY: See Below FAMILY HISTORY: See Below SOCIAL HISTORY: See Below HOME MEDICATIONS: See Below ALLERGIES: See Below VITALS: See Below PHYSICAL EXAMINATION: GENERAL: Patient is awake alert in no acute distress patient is resting comfortably and showing no signs of anxiety EYES: The conjunctivae are clear. The pupils are round and reactive. EARS, NOSE, MOUTH AND THROAT: The nose is without any evidence of any deformity. NECK: The neck is nontender and supple. RESPIRATORY: Normal respiratory effort is noted there is no evidence of wheezing rhonchi or rales CARDIOVASCULAR: Tachycardic and regular heart sounds were noted to auscultation. There is no definite murmur. GASTROINTESTINAL: The abdomen is soft. Abdomen is nontender. MUSCULOSKELETAL/EXTREMITIES: There is no evidence of gross deformity full range of motion is noted in the hips and shoulders. SKIN: There is no obvious evidence of any rash. There are no petechiae, pallor or cyanosis noted. NEUROLOGIC: Patient is awake alert and oriented x3 MEDICAL DECISION MAKING: The patient is a 78-year-old female who has been having problems with abdominal pain over the course the last few weeks. She was seen in our facility recently. She had a follow-up appointment scheduled with her primary care physician. When she went to the primary care physician's office she was found to be tachycardic. She has no history of atrial fibrillation but she was sent to the emergency department for further evaluation. The patient had a wide-complex tachycardia that was very regular. Given her old EKG which does show a Helton C I feel this is most likely consistent with atrial flutter 2-1 with a bundle branch block. She was treated with Cardizem. She did eventually slow to a atrial fibrillation but she also had some signs of atrial flutter. I discussed patient's laboratory and radiographic studies with her. Given her findings I discussed her condition with the on-call [facility] hospitalist. They have agreed to evaluate the patient in the emergency department for further management and disposition. Triage Nursing notes reviewed. Prior medical records reviewed Vital Signs: reviewed and remarkable initial tachycardia Differential diagnosis: Premature contractions, electrolyte abnormality, cardiac dysrhythmia, thyroid dysfunction, pulmonary embolism, infection, gastrointestinal, as well as other pathologies. ER treatment provided: See below Diagnostics interpreted by me: ECG: EKG was obtained in the emergency department. My interpretation is wide- complex tachycardia at 149 bpm. No PVCs were noted. Left bundle branch block pattern was noted. This was compared to a tracing from December 01, 2023. Sinus rhythm with left bundle branch block has been replaced with wide-complex tachycardia. This may represent atrial flutter with 2-1 conduction. A second EKG was obtained in the emergency department. My interpretation is irregular rhythm with left bundle branch block pattern favored. This may represent atrial flutter with variable conduction versus sinus rhythm and PVCs or PACs noted. This is new compared to the tracing from December 01, 2023 Cardiac Monitoring: An order was placed for continuous cardiac monitoring. The monitor shows a rate of 95 bpm with atrial fibrillation Laboratory studies: As stated above and show below. Imaging studies: See below. Radiographic imaging was reviewed by myself Consultation(s): I discussed his case with Marcin who is on-call for the [facility] hospitalist group. ED COURSE: Procedures: none Critical Care: I have personally spent greater than 45 minutes of critical care time in the direct management of this patient. This includes bedside care, interpretation of diagnostic studies, and testing, discussion with consultants, patient, and family members, and other required patient management activities. This 45 minutes is in excess of all separately billable procedures. Past Med/Surg History Medical History History of COVID-13 Sep 2022. mild symptoms at the time. History of anesthesia reaction Brother gets panic attacks and doesn't come out of anesthesia well. Sister takes awhile to get awake. Borderline high cholesterol Osteopenia External hemorrhoids hx Primary hypertension Monoclonal gammopathy (06/25/13) blood work yearly/no changes. 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 Status post abnormal left breast mammogram Status post ultrasound-guided core needle biopsy 10/10/2017 benign tissue " Surgical History Status post Mohs surgery chin-09/03/23 History of cataract surgery left-08/22/23 History of colonoscopy History of total left knee replacement History of total right knee replacement History of lumpectomy of right breast S/P tonsillectomy and adenoidectomy pt not sure about adenoidectomy. Confirms tonsillectomy. S/P fine needle aspiration H/O breast biopsy History of bone marrow biopsy Family History Mother Diabetes Hypertension Stroke Heart disease Myocardial infarction Father Multiple myeloma Denies family history of Ovarian cancer Prostate cancer Breast cancer Colorectal cancer Social History Smoking Status: Former smoker Tobacco Type: Cigarettes Age Started Using Tobacco: 16; Age Quit Using Tobacco: 32; packs per day: 0.25; Cigarettes Per Day: age 29; Second Hand Exposure: No; Do You Dip or Chew Tobacco: No; Hx Alcohol Use: No (hx light off and on social) Hx Substance Use: No Preferred Language: Belgian Communication Ability: Effective Visual Impairment: No Limitations Hearing Ability: Normal Industrial Engineering Technician Required: No Beliefs That Will Affect Care: None marital status: Current Living Situation: Spouse current occupational status: retired 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[employer] Feels Safe at Home: Yes Childhood Exposure to Second-Hand Smoke: No Diet: regular Dental Care, Regularly: No Physical Activity Frequency: 3-4 Times per Week Seatbelt Use: always Sunscreen Use: Yes (sometimes ) Assistive Devices: Glasses Allergies Allergies Allergy/AdvReac Type Severity Reaction Status Date / Time ciprofloxacin Allergy Intermediate itching Verified 12/18/23 18:25 adhesive Allergy Mild SOME Verified 12/18/23 18:25 BANDAIDS GIVE PT RED SKIN Home Meds Home Medications Medication Instructions Recorded Confirmed [id number] 8 mg-folic 400 1 tab PO QDL 08/28/19 12/18/23 mcg-K 50 mcg-lutein 300 mcg tablet (Centrum Silver Women) lactobacillus combination no.9 4 0 mmu cells PO QDL 08/17/22 12/18/23 billion cell capsule (Adult 50 Plus Probiotic) amlodipine 5 mg-olmesartan 20 mg 1 tab PO QAM 08/15/23 12/18/23 tablet cholecalciferol (vitamin D3) 50 50 mcg PO QDL 10/30/23 12/18/23 mcg (2,000 unit) capsule faawsfzlp-FED-tfzoaosakepsp tablet 1 tab PO DIRECTED PRN Cold 12/01/23 12/18/23 Symptoms famotidine 20 mg tablet (Pepcid AC) 20 mg PO DAILY 12/18/23 12/18/23 promethazine 25 mg tablet 12.5 mg PO BID PRN nausea and 12/18/23 12/18/23 vomiting Results & Data (ED) Vital Signs Vital Signs - 24 hr 12/18/23 16:39 12/18/23 16:42 12/18/23 17:20 Temperature 37.3 C Temperature Source Oral Pulse Rate 150 H 148 H Pulse Rate [Apical] 85 Respiratory Rate 16 14 Blood Pressure 147/114 H Blood Pressure [Left Arm] 142/112 H Blood Pressure Mean 125 Blood Pressure Mean [Left Arm] 122 Pulse Oximetry 98 97 Oxygen Delivery Method Room Air Room Air Sepsis Recent Fever Within 48 Hours No Sepsis New/Unexplained Change in Mental Status No Sepsis Action Taken by Nursing No Action Required 12/18/23 17:50 12/18/23 18:57 12/18/23 19:00 Temperature Temperature Source Pulse Rate 97 H 146 H Pulse Rate [Apical] 116 H Respiratory Rate 22 Blood Pressure 145/115 H Blood Pressure [Left Arm] 146/109 H Blood Pressure Mean Blood Pressure Mean [Left Arm] 121 Pulse Oximetry 94 Oxygen Delivery Method Sepsis Recent Fever Within 48 Hours Sepsis New/Unexplained Change in Mental Status Sepsis Action Taken by [facility] Medications Current Medication List: was personally reviewed by me Laboratory Data Attestation: I reviewed the patient's lab results. 12/18/23 16:41 12/18/23 16:41 Lab Results 12/18/23 Range/Units 16:41 WBC 8.10 (4.8-10.8) K/ul RBC 4.06 L (4.20-5.40) M/uL Hgb 12.1 (12.0-16.0) g/dl Hct 35.4 L (37.0-47.0) % MCV 87.2 (80.0-100.0) fL MCH 29.8 (25.0-34.0) pg MCHC 34.2 (32.0-36.0) g/dL RDW Std Deviation 40.3 (36.4-46.3) fL RDW Coeff of Deion 12.6 (11.5-14.5) % Plt Count 254 (130-400) K/uL MPV 9.2 L (9.4-12.4) fL Immature Gran % (Auto) 0.4 % Neut % (Auto) 52.6 % Lymph % (Auto) 32.0 % [place] % (Auto) 11.7 % Eos % (Auto) 2.6 % Baso % (Auto) 0.7 % Neut # (Auto) 4.26 (1.40-6.50) K/uL Lymph # (Auto) 2.59 (1.20-3.40) K/uL [place] # (Auto) 0.95 H (0.11-0.59) K/uL Eos # (Auto) 0.21 (0.00-0.50) K/uL Baso # (Auto) 0.06 (0.00-0.20) K/uL Immature Gran # (Auto) 0.03 (0.01-0.20) K/uL PT 10.9 (9.0-12.0) Seconds INR 1.0 (0.9-1.1) APTT 31 (21-31) Seconds PTT Ratio 1.1 Sodium 134 L (136-145) mmol/L Potassium 4.2 (3.5-5.1) mmol/L Chloride 101 (98-107) mmol/L Carbon Dioxide 24 (21-32) mmol/L Anion Gap 9 (3-11) BUN 18 (6-23) mg/dl Creatinine 1.13 (0.6-1.2) mg/dl Est Cr Clr Drug Dosing 41.7 ml/min Est GFR ( Amer) 53.5 ml/min Est GFR (Non-Af Amer) 46.2 ml/min BUN/Creatinine Ratio 15.9 (10-20) Glucose 90 (70-99(Fasting)) mg/dl Calcium 9.2 (8.6-10.3) mg/dl Magnesium 2.0 (1.7-2.4) mg/dl Total Bilirubin 0.8 (0.2-1.0) mg/dl AST 14 (13-39) U/L ALT 17 (7-52) U/L Alkaline Phosphatase 62 (34-104) U/L Troponin I High Sens 7.8 (0-14) pg/ml Total Protein 7.5 (6.0-8.3) gm/dl Albumin 4.1 (3.4-5.0) gm/dl Globulin 3.4 (2.5-4.0) gm/dl Albumin/Globulin Ratio 1.2 (0.9-2) TSH 3.305 (0.300-4.500) uIu/ml Administered Medications Heparin Sodium/Dextrose (Heparin Sodium/Dextrose) 25,000 units in 500 mls @ 16 mls/hr IV .Q24H [facility]; Protocol Stop: 01/17/24 19:29 Last Admin: 12/18/23 20:10 Dose: 800 units/hr, 16 mls/hr Documented By: FLORENCIO Co-signed By: ZAHRA Metoprolol Tartrate (Metoprolol Tartrate 1 Mg/Ml Vial) 5 mg IV Q6H PRN PRN Reason: Tachycardia Last Admin: 12/18/23 20:45 Dose: 5 mg Documented By: DM Discontinued Medications Diltiazem HCl (Diltiazem Hcl 5 Mg/Ml 5 Ml Vial) 10 mg IV NOW STA Stop: 01/23/24 16:41 Last Admin: 12/18/23 16:48 Dose: 10 mg Documented By: FLORENCIO Co-signed By: MISBAH Diltiazem HCl (Diltiazem Hcl 5 Mg/Ml 5 Ml Vial) 10 mg IV NOW STA Stop: 12/18/23 17:16 Last Admin: 12/18/23 17:17 Dose: 10 mg Documented By: FLORENCIO Co-signed By: ML Heparin Sodium (Porcine) (Heparin Sod (Porcine) 1000 Unit/Ml) 4,000 units IV NOW ONE Stop: 12/18/23 19:26 Last Admin: 12/18/23 20:11 Dose: 4,000 units Documented By: FLORENCIO Co-signed By: ZAHRA Sodium Chloride (Nss) 500 mls @ 999 mls/hr IV .Q31M STA Stop: 12/18/23 17:08 Last Infusion: 12/18/23 17:19 Dose: Infused Documented By: Admin: 12/18/23 16:45 Dose: 999 mls/hr Documented By: FLORENCIO Magnesium Sulfate/Dextrose (Magnesium Sulfate / D5w) 1 gm in 100 mls @ 100 mls/hr IV NOW STA Stop: 12/18/23 18:14 Last Infusion: 12/18/23 18:25 Dose: Infused Documented By: Admin: 12/18/23 17:24 Dose: 100 mls/hr Documented By: FLORENCIO Metoprolol Tartrate (Metoprolol Tartrate 1 Mg/Ml Vial) 2.5 mg IV NOW STA Stop: 12/18/23 18:51 Last Admin: 12/18/23 18:57 Dose: 2.5 mg Documented By: FLORENCIO Imaging Data Attestation: I personally reviewed and interpreted this imaging study as follows: My Impression: 1 view chest x-ray was obtained in the emergency department. My interpretation is no free air or definite infiltrate, final report below Radiologist's Impression: Chest X-Ray 12/18/23 16:38 XR chest 1V portable HISTORY: 78 years-old Female Dysrhythmia acute chest pain COMPARISON: 12/01/2023 TECHNIQUE: AP view of the chest FINDINGS: Cardiac silhouette is mildly enlarged. Chronic right hemidiaphragmatic elevation with mild chronic interstitial coarsening. No pneumothorax, pleural effusion, airspace consolidation or pulmonary edema. Degenerative changes of the shoulders and spine. IMPRESSION: No acute process. ACT 112: Negative or not required by law. The above report was generated using voice recognition software. It may contain grammatical, syntax or spelling errors. Electronically signed by: Alessandro Patricia M.D. 12/18/2023 5:06 PM Discharge Plan Visit Data Chief Complaint: Tachycardia ED Provider: Low Parker Discharge Problem: Atrial fibrillation with rapid ventricular response, Heart palpitations Patient Disposition: Admitted As Inpatient Discharge Instructions Interventions: ED Discharge Assessment Last Done: 12/18/23 19:48
--- NOTE | 2023-12-18 17:08 | XRay Report ---
XR chest 1V portable HISTORY: 78 years-old Female Dysrhythmia acute chest pain COMPARISON: 12/01/2023 TECHNIQUE: AP view of the chest FINDINGS: Cardiac silhouette is mildly enlarged. Chronic right hemidiaphragmatic elevation with mild chronic in terstitial coarsening. No pneumothorax, pleural effusion, airspace consolidation or pulmonary edema. Degenerative changes of the shoulders and spine. IMPRESSION: No acute process. ACT 112: Negative or not required by law. The above report was generated using voice recognition software. It may contain grammatical, syntax o r spelling errors. Electronically signed by: Alessandro Patricia M.D. 12/18/2023 5:06 PM
[2023-12-18] MEDS ORDERED: MAGNESIUM SULFATE / D5W 1 GM/100 ML BAG IV STA (17:15)
[2023-12-18 17:34] LABS: Albumin Globulin Ratio 1.2 (0.9-2); Albumin Level 4.1 gm/dl (3.4-5.0); BUN Creatinine Ratio 15.9 (10-20); Bilirubin,Total 0.8 mg/dl (0.2-1.0); Calcium 9.2 mg/dl (8.6-10.3); Creatinine Clr Calc Pharmacy 41.7 ml/min; Est GFR (African American) 53.5 ml/min; Est GFR (Non-African American) 46.2 ml/min; Globulin 3.4 gm/dl (2.5-4.0); Potassium 4.2 mmol/L (3.5-5.1); Total Protein 7.5 gm/dl (6.0-8.3)
[2023-12-18 17:47] LABS: Thyroid Stimulating Hormone 3.305 uIu/ml (0.300-4.500)
[2023-12-18 17:52] LABS: Partial Thromboplastin Ratio 1.1; Partial Thromboplastin Time 31 Seconds (21-31); Prothrombin Time 10.9 Seconds (9.0-12.0)
--- NOTE | 2023-12-18 18:24 | History & Physical Report ---
Date of Service December 18, 2023 Assessment & Plan (1) Wide-complex tachycardia: Plan: -Admit to the PCU on tele -Currently with HR in the 110's-130's but otherwise stable and asymptomatic -At this time the patient's exact heart rhythm is not clear >Spoke with Cardiology, appreciate their assistance >They believe that her initial rhythm was most likely atrial flutter as it was very regular with a rate in the 150's >They believe her second ECG shows NSR with frequent PVC's instead of bigeminy at this time >At this time they agree with admission, recommends continue IV Lopressor for now for rate control and to anticoagulate overnight until atrial fluter and/or afib is officially ruled out >Spoke to them regarding 2nd line treatment if IV lopressor fails -No previous hx of CHF -Could try amiodarone as we will be starting her on a heparin drip and she has P-waves in the second ECG without signs of cardioembolic event -High sen trop ordered on admission is WNL -Potassium and magnesium are WNL -Spoke to the patient regarding initiating heparin drip, they deny a hx of major bleeding and are in agreement with starting anticoagulation overnight -Cardiology consult placed -Will obtain TTE tomorrow for further evaluation -Once HR is better controlled we will be able to determine her rhythm -Will give 2.5 mg IV lopressor on admission -Will continue with 5 mg IV lopressor q6h prn for sustained (greater than 5 min) HR greater than or equal to 120 BPM (Max doses of 4) -WIll start low dose, weight based heparin drip with bolus -Communication placed to let recreational director provider know if patient has reached their max dose limit of lopressor so treatment regimen can be adjusted -Fall precautions -HH diet -AM CBC, BMP, mag, PT/INR (2) Primary hypertension: Plan: -Currently stable -Will hold amlodipine-olmesartan for now to prevent hypotension with IV cardiac medications on admission Plan The patient was seen with and discussed with Dr. Wilson at the time of the admission History of Present Illness Chief Complaint: Tachycardia Primary Care Provider: Jennifer Madrid MD Ayde is a 78 year old female with a PMH significant for LBBB, HTN, HLD, IgM MGUS, anxiety, and IBS who was sent to the ED via EMS due to generalized weakness, wide complex tachycardia, and recent syncopal episodes with heart palpitations. On arrival to the ED she was noted to be tachycardic with HR in the 140-150's but was otherwise stable. ECG on arrival showed a wide complex tachycardia with her chronic LBBB noted but was otherwise negative for acute ST segment or T-wave changes. The patient was given 500 mL NSS, 1gm IV mag sulfate, and 2 doses of 10 mg IV diltiazem with HR temporarily improving to the 90's. At the time of the exam the patient was sitting in bed in no acute distress with her sitting bedisde, history was obtained from both. She states that she has been dealing with gastrointestinal issues for the past few months. She has had a large workup for the GI issues, thought to be caused by IBS at this time. She saw her PCP earlier today for the ongoing GI issues and they found her to be in a wide complex tachycardia with HR in the 150's, which is why they sent her to the ED. She states that she has been experiencing heart palpitations while lying in bed the past 2 nights, but denies any palpitations during the day or with activity. She denies recent chest pain, SOB, cough, lightheadedness/dizziness, dysuria, hematuria, melena, LE swelling, and recent trauma. Of note, approximately 3 weeks ago the patient experiencing 2 episodes of syncope at home. She had been dealing with a bout of diarrhea and got up in the exercise planner to have a bowel movement. While sitting on the toilet she states that she had what she believes to be a vasovagal episode as she has had previous episodes in the past. She felt the symptoms coming on and yelled for her who was able to catch her and prevent her from falling. When she woke, she stood to walk to their bed but suddenly lost consciousness again. She denies have prodromal symptoms prior to the second episode of syncope. Her states that she was unconscious for 10-15 seconds after the second episode. She was evaluated in the ED and discharged home as her workup had been unremarkable. She is currently comfortable sitting in bed and denies a previous hx of heart rhythm issues or CHF. She is a full code and would want her to make medical decisions for her if she cannot make them herself. Please refer to Dr. Wilson's attestation for any changes to the treatment plan Allergies Allergy/AdvReac Type Severity Reaction Status Date / Time ciprofloxacin Allergy Intermediate itching Verified 12/18/23 18:25 adhesive Allergy Mild SOME Verified 12/18/23 18:25 BANDAIDS GIVE PT RED SKIN Home Medications Medication Instructions Recorded Confirmed Type rpdxqboz-weuo-lxao 8 mg-folic 400 1 tab PO QDL 08/28/19 12/18/23 History mcg-K 50 mcg-lutein 300 mcg tablet (Centrum Silver Women) lactobacillus combination no.9 4 0 mmu cells PO QDL 08/17/22 12/18/23 History billion cell capsule (Adult 50 Plus Probiotic) amlodipine 5 mg-olmesartan 20 mg 1 tab PO QAM 08/15/23 12/18/23 History tablet cholecalciferol (vitamin D3) 50 50 mcg PO QDL 10/30/23 12/18/23 History mcg (2,000 unit) capsule lzurxhwbv-VVT-ioojfkuvxdwmy tablet 1 tab PO DIRECTED PRN Cold 12/01/23 12/18/23 History Symptoms famotidine 20 mg tablet (Pepcid AC) 20 mg PO DAILY 12/18/23 12/18/23 History promethazine 25 mg tablet 12.5 mg PO BID PRN nausea and 12/18/23 12/18/23 History vomiting Past Med/Surg History Medical History History of COVID-13 Sep 2022. mild symptoms at the time. History of anesthesia reaction Brother gets panic attacks and doesn't come out of anesthesia well. Sister takes awhile to get awake. Borderline high cholesterol Osteopenia External hemorrhoids hx Primary hypertension Monoclonal gammopathy (06/25/13) blood work yearly/no changes. 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 Status post abnormal left breast mammogram Status post ultrasound-guided core needle biopsy 10/10/2017 benign tissue " Surgical History Status post Mohs surgery chin-09/03/23 History of cataract surgery left-08/22/23 History of colonoscopy History of total left knee replacement History of total right knee replacement History of lumpectomy of right breast S/P tonsillectomy and adenoidectomy pt not sure about adenoidectomy. Confirms tonsillectomy. S/P fine needle aspiration H/O breast biopsy History of bone marrow biopsy Family History Mother Diabetes Hypertension Stroke Heart disease Myocardial infarction Father Multiple myeloma Denies family history of Ovarian cancer Prostate cancer Breast cancer Colorectal cancer Social History Smoking Status: Former smoker Tobacco Type: Cigarettes Age Started Using Tobacco: 16; Age Quit Using Tobacco: 32; packs per day: 0.25; Cigarettes Per Day: age 29; Second Hand Exposure: No; Do You Dip or Chew Tobacco: No; Hx Alcohol Use: No (hx light off and on social) Hx Substance Use: No Preferred Language: Irish Communication Ability: Effective Visual Impairment: No Limitations Hearing Ability: Normal Investment Accountant Required: No Beliefs That Will Affect Care: None marital status: Current Living Situation: Spouse current occupational status: retired 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[employer] Feels Safe at Home: Yes Childhood Exposure to Second-Hand Smoke: No Diet: regular Dental Care, Regularly: No Physical Activity Frequency: 3-4 Times per Week Seatbelt Use: always Sunscreen Use: Yes (sometimes ) Assistive Devices: Glasses Physical Exam Physical Exam: Physical Exam: General: In no acute distress, stated age, well-nourished, good hygiene HEENT: Normocephalic, atraumatic, no scleral icterus, pupils around round, symmetrical, and reactive to light, moist mucus membranes, trachea midline, no thyromegaly Chest/Pulm: No respiratory distress, symmetrical chest expansion, clear breath sounds throughout Cardiac: regular rate, irregular rhythm, no murmurs noted Abdomen: Negative for ascites and bruising, normoactive bowel sounds, soft, non-tender to palpation throughout Musculoskeletal: Symmetrical and without signs of acute trauma, upper and lower extremities with full ROM, no atrophy, spasticity, or flaccidity Extremities: Radial, dorsalis pedis, and posterior tibial pulses are intact and symmetrical, no edema noted in the BL LE's Skin: Warm, dry, no rashes , lesions, or scars noted Neuro: Alert and oriented to person, place, month, year, and president, no focal defects, no tremors noted Psych: No acute distress, calm and cooperative during the exam Results & Data Results & Data Vital Signs (Past 12 Hours) Vital Signs Temp Pulse Pulse Resp BP BP Pulse Ox 12/18/23 17:50 97 H 12/18/23 17:20 85 14 142/112 H 97 12/18/23 16:42 148 H 12/18/23 16:39 37.3 C 150 H 16 147/114 H 98 O2 Del Method 12/18/23 17:50 12/18/23 17:20 Room Air 12/18/23 16:42 12/18/23 16:39 Room Air Laboratory Results Abnormal lab results 12/18/23 Range/Units 16:41 RBC 4.06 L (4.20-5.40) M/uL Hct 35.4 L (37.0-47.0) % MPV 9.2 L (9.4-12.4) fL [place] # (Auto) 0.95 H (0.11-0.59) K/uL Sodium 134 L (136-145) mmol/L Diagnostic Findings Chest X-Ray 12/18/23 16:38 XR chest 1V portable HISTORY: 78 years-old Female Dysrhythmia acute chest pain COMPARISON: 12/01/2023 TECHNIQUE: AP view of the chest FINDINGS: Cardiac silhouette is mildly enlarged. Chronic right hemidiaphragmatic elevation with mild chronic interstitial coarsening. No pneumothorax, pleural effusion, airspace consolidation or pulmonary edema. Degenerative changes of the shoulders and spine. IMPRESSION: No acute process. ACT 112: Negative or not required by law. The above report was generated using voice recognition software. It may contain grammatical, syntax or spelling errors. Electronically signed by: Alessandro Patricia M.D. 12/18/2023 5:06 PM ECG Additional Comments: Wide QRS tachycardia Left axis deviation Left bundle branch block Abnormal ECG When compared with ECG of 01-DEC-2023 09:12, Wide QRS tachycardia has replaced Sinus rhythm Vent. rate has increased BY 66 BPM Sinus rhythm with Premature supraventricular complexes Left axis deviation Left bundle branch block Abnormal ECG When compared with ECG of 18-DEC-2023 16:36, (unconfirmed) Sinus rhythm has replaced Wide QRS tachycardia Vent. rate has decreased BY 53 BPM Code Status & VTE Plan Code Status Full code VTE Prophylaxis Plan VTE Prophylaxis will be ordered: Yes Supervising Physician Co-Signing Physician Notes Ayde is a 78-year-old female with a past medical history of left bundle branch block, hypertension, hyperlipidemia, MGUS, anxiety, IBS who presented with weakness tachycardia palpitations and syncopal episodes. Patient's initial rate was [id number]. Was recommended for admission for suspected wide-complex tachycardia/atrial fibrillation vs flutter with RVR with underlying bundle branch block. No leukocytosis, no infectious symptoms. Chest x-ray is normal. At bedside patient reports that just since being here she has had some bilateral neck discomfort "0.5 barely noticeable "which improves with stretching and she thinks it is from laying in the bed uncomfortably. Denies chest pain, chest pressure, diaphoresis. No history of exertional chest pain or anginal symptoms. She did have 2 episodes of syncope, the first of which was after standing and with some prodrome? Vasovagal but second episode was with no prodrome and concerning for cardiogenic syncope. She has a left bundle branch block at baseline, on admission she is with a wide-complex tachycardia initially suspected to be atrial flutter with RVR and baseline bundle branch block;? tachycardia with ventricular ectoy with P waves apparent when rate slows. Patient received 2.5 mg of metoprolol on admission, echo ordered, cardiology consulted. She transiently had improvement with P waves present and then switched back into a tachycardic rhythm at approximately 150 again suspicious for flutter. Low suspicion for ACS and patient's neck pain seems musculoskeletal; however as this is occurring in the setting of RVR troponin was added at time of hospitalist consultation. Patient reports she is in no pain on reassessment Discussed with cardiology, suspect paroxysmal atrial flutter most likely. Anticoagulation started. Can continue metoprolol load; if inadequate control with diltiazem and metoprolol can place on amiodarone drip rather than digoxin load. While she has not been anticoagulated prior to this, she had a transient episode with P waves and sinus tachycardia with ectopy while in the ER before reverting without induction of strokelike symptoms. Appreciate recommendations. Cardiology consulted, optimize magnesium 2.0/potassium 4.0. Agree with assessment and management as above PG Care Time/CCT Total # of Minutes Spent Total Time Spent with Patient: Total time spent is greater than 50% in coordination of care (as documented) at patient's floor/unit and/or counseling patient: C[place] [address] INT INP/OBS CARE 3/75MIN Patient Type Established History Comprehensive Exam Comprehensive Medical Decision Making High Complexity Diagnoses Wide-complex tachycardia R00.0 Primary hypertension I10
[2023-12-18] MEDS ORDERED: METOPROLOL TARTRATE 1 MG/ML VIAL IV STA (18:50)
[2023-12-18] MEDS ORDERED: Heparin IV Adult Wt-Based Low-Dose w/ INITIAL Bolus Protocol IV SCH (19:11)
[2023-12-18 19:18] LABS: Troponin I High Sensitivity 7.8 pg/ml (0-14)
[2023-12-18] MEDS ORDERED: METOPROLOL TARTRATE 1 MG/ML VIAL IV PRN (19:18)
[2023-12-18] MEDS ORDERED: HEPARIN SOD (PORCINE) 1000 UNIT/ML IV ONE (19:25)
[2023-12-18] MEDS: HEPARIN SODIUM/DEXTROSE 25,000 UNITS/500 ML BAG IV SCH (20:10)
[2023-12-18] MEDS: METOPROLOL TARTRATE 1 MG/ML VIAL IV PRN (20:45)
[2023-12-19 02:32] LABS: Hemoglobin 11.7 g/dl (12.0-16.0); Mean Corpuscular Hemoglobin 29.6 pg (25.0-34.0); Mean Corpuscular Hgb Conc 33.4 g/dL (32.0-36.0); Mean Corpuscular Volume 88.6 fL (80.0-100.0); Mean Platelet Volume 9.2 fL (9.4-12.4); Platelet Count 215 K/uL (130-400); RDW Coefficient of Variation 12.4 % (11.5-14.5); RDW Standard Deviation 40.5 fL (36.4-46.3); Red Blood Count 3.95 M/uL (4.20-5.40); White Blood Count 6.71 K/ul (4.8-10.8)
[2023-12-19 02:39] LABS: Calcium 8.9 mg/dl (8.6-10.3)
[2023-12-19 02:45] LABS: BUN Creatinine Ratio 14.6 (10-20); Creatinine Clr Calc Pharmacy 49.5 ml/min; Est GFR (African American) 65.2 ml/min; Est GFR (Non-African American) 56.2 ml/min
[2023-12-19 02:57] LABS: ANTI-Xa, UFH(UnfractionatedHep 0.29 IU/ml (0.3-0.7)
[2023-12-19] MEDS ORDERED: PROMETHAZINE HCL 25 MG TAB PO ONE (03:50)
[2023-12-19] MEDS ORDERED: FAMOTIDINE 20 MG TAB PO SCH (09:00)
[2023-12-19 10:14] LABS: ANTI-Xa, UFH(UnfractionatedHep 0.24 IU/ml (0.3-0.7)
--- NOTE | 2023-12-19 10:26 | Cardiology Consultation ---
Date of Consultation December 19, 2023 Assessment & Plan (1) Atrial flutter: (2) Mitral regurgitation: (3) Left bundle branch block: Plan 1. Atrial flutter: I believe this accounts for her arrhythmia. Does appear to be regular atrial activity. Some variable ventricular response. Unclear duration but likely a few days. Few symptoms other than palpitations. We discussed options for treatment. The most immediate treatment will be cardioversion restored normal rhythm. At that point we have the luxury of scheduling catheter based therapy on an outpatient basis if she is amenable. She was started on systemic anticoagulation in this can be transition to oral regimen. Her sister takes Eliquis and I would seem to be a reasonable option for her. Eliquis 5 mg twice daily. Given the unknown duration of her arrhythmia will need to perform a TIFFANIE prior to cardioversion. Unfortunately, she ate breakfast this morning and the procedure will need to be delayed until tomorrow. She would likely be suitable for discharge immediately afterwards. 2. Mitral regurgitation: Mild to moderate. Normal LV function. No symptoms. This can be monitored over time 3. Left bundle-branch block: This dates back at least till 2021. I could not find another EKG in her record. Unclear if she underwent an evaluation previously. However, given her advanced age unlikely to be an infiltrative process. Most likely age related. No LVH on her echocardiogram. Ischemic evaluation at some point would seem to be of value. No perfusion imaging currently available at our facility. However, this could all be arranged as an outpatient as well. History of Present Illness Reason for Consultation: Tachycardia Requesting Physician: Katie Attending Physician: Leigha Kearney MD History of Present Illness Patient is a 78-year-old woman without a known history of cardiac disease who presented to the emergency room at the direction of her primary care physician for tachycardia. The patient had a routine appointment for evaluation lower abdominal discomfort. She was noted the time of her evaluation have tachycardia. An EKG confirmed the diagnosis. Patient did report a sense of palpitation for 2-3 days leading up to her visit. She also noticed some element of tachycardia while lying in bed at nighttime. She did not report associated symptoms. She is overall usual duties with the exception of being somewhat more tired. She seems to have a sense of lightheadedness at times. This is more prominent in the morning and improves as the day progresses. This is not appear to be a new finding. She also has a history of syncope. All the episodes appear to be preceded by a discrete prodrome. Usually triggered by abdominal symptoms. These episodes have happened repeatedly over the years. She easily recognizes the prodrome and often called her to help support her. Her last episode was 2 weeks ago. Was very typical with the exception of a 2nd episode of syncope when she attempted to stand afterwards. In general she is able to perform routine activities without limitation. She has been less active in the past few months due to variety of issues including vaccinations and surgeries. However, the summer time she was playing golf and using a recumbent bicycle without symptom. She reports having some difficulty sleeping. This is longstanding in nature. It is not related to orthopnea, paroxysmal nocturnal dyspnea or difficulty breathing. Allergies Allergy/AdvReac Type Severity Reaction Status Date / Time ciprofloxacin Allergy Intermediate itching Verified 12/18/23 18:25 adhesive Allergy Mild SOME Verified 12/18/23 18:25 BANDAIDS GIVE PT RED SKIN Home Medications Medication Instructions Recorded Confirmed Type thzwxxgx-tnfg-expp 8 mg-folic 400 1 tab PO QDL 08/28/19 12/18/23 History mcg-K 50 mcg-lutein 300 mcg tablet (Centrum Silver Women) lactobacillus combination no.9 4 0 mmu cells PO QDL 08/17/22 12/18/23 History billion cell capsule (Adult 50 Plus Probiotic) amlodipine 5 mg-olmesartan 20 mg 1 tab PO QAM 08/15/23 12/18/23 History tablet cholecalciferol (vitamin D3) 50 50 mcg PO QDL 10/30/23 12/18/23 History mcg (2,000 unit) capsule oxhcfdnle-KIF-nclindymvmemn tablet 1 tab PO DIRECTED PRN Cold 12/01/2312/18 History Symptoms famotidine 20 mg tablet (Pepcid AC) 20 mg PO DAILY 12/18/23 12/18/23 History promethazine 25 mg tablet 12.5 mg PO BID PRN nausea and 12/18/23 12/18/23 History vomiting Patient History Medical History History of COVID-13 Sep 2022. mild symptoms at the time. History of anesthesia reaction Brother gets panic attacks and doesn't come out of anesthesia well. Sister takes awhile to get awake. Borderline high cholesterol Osteopenia External hemorrhoids hx Primary hypertension Monoclonal gammopathy (06/25/13) blood work yearly/no changes. 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 Status post abnormal left breast mammogram Status post ultrasound-guided core needle biopsy 10/10/2017 benign tissue " Surgical History Status post Mohs surgery chin-09/03/23 History of cataract surgery left-08/22/23 History of colonoscopy History of total left knee replacement History of total right knee replacement History of lumpectomy of right breast S/P tonsillectomy and adenoidectomy pt not sure about adenoidectomy. Confirms tonsillectomy. S/P fine needle aspiration H/O breast biopsy History of bone marrow biopsy Family History Mother Diabetes Hypertension Stroke Heart disease Myocardial infarction Father Multiple myeloma Denies family history of Ovarian cancer Prostate cancer Breast cancer Colorectal cancer Social History Smoking Status: Former smoker Tobacco Type: Cigarettes Age Started Using Tobacco: 16; Age Quit Using Tobacco: 32; packs per day: 0.25; Cigarettes Per Day: 1/2 PPD; Smoking End Date: 45 years ago; Second Hand Exposure: No; Do You Dip or Chew Tobacco: No; Hx Alcohol Use: Yes Alcohol type: other Hx Substance Use: No Preferred Language: Citizen Of [place] Communication Ability: Effective Visual Impairment: No Limitations Hearing Ability: Normal Access Database Developer Required: No Beliefs That Will Affect Care: None marital status: Current Living Situation: Spouse current occupational status: retired 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 Her main concern is actually abdominal symptoms. She has a burning an uncomfortable sensation in the lower abdomen quite frequently. Not worsened with eating. No nausea or vomiting. Physical Exam Physical Exam: She is alert and oriented x3. Mood affect appear normal. She answered all questions appropriately. HEENT: Sclerae are anicteric. Pupils are equal and reactive to light and accommodation. Extraocular movements were intact. Neuro: Cranial nerves intact Neck: Examination of the submandibular region did not reveal any significant lymphadenopathy. Carotids are palpable bilaterally and free of bruits on auscultation. There was no evidence of jugular venous distention. The thyroid was not enlarged. Lungs: Lungs are clear to auscultation bilaterally. There are no rales wheezes or rhonchi. She has normal respiratory effort without use of accessory muscles. There is normal pulmonary excursion. Cardiac: The rhythm was irregular. S1 and S2 were normal. There are no murmurs on examination. The PMI was not markedly displaced on palpation. Extremities: Patient has bilateral radial pulses that are equal in intensity. There is no evidence cyanosis or clubbing. There was no evidence of significant peripheral edema bilaterally. Skin: There are no rashes noted on examination today. Results & Data Vital Signs (Past 12 Hours) Vital Signs Temp Pulse Pulse Resp BP Pulse Ox O2 Del Method 12/19/23 08:11 97 H 22 134/87 97 Room Air 12/19/23 07:29 78 12/19/23 03:37 36.9 C 68 18 119/89 98 Room Air 12/18/23 23:51 36.4 C L 108 H 16 129/86 97 Room Air 12/18/23 23:42 36.6 C 76 16 120/90 97 Room Air Laboratory Results Abnormal Lab Results 12/18/23 12/19/23 12/19/23 16:41 02:11 08:58 WBC 8.10 6.71 RBC 4.06 L 3.95 L Hgb 12.1 11.7 L Hct 35.4 L 35.0 L MCV 87.2 88.6 MCH 29.8 29.6 MCHC 34.2 33.4 RDW Std Deviation 40.3 40.5 RDW Coeff of [place] 12.6 12.4 Plt Count 254 215 MPV 9.2 L 9.2 L Immature Gran % (Auto) 0.4 Neut % (Auto) 52.6 Lymph % (Auto) 32.0 [place] % (Auto) 11.7 Eos % (Auto) 2.6 Baso % (Auto) 0.7 Neut # (Auto) 4.26 Lymph # (Auto) 2.59 [place] # (Auto) 0.95 H Eos # (Auto) 0.21 Baso # (Auto) 0.06 Immature Gran # (Auto) 0.03 PT 10.9 11.0 INR 1.0 1.0 APTT 31 PTT Ratio 1.1 Heparin Anti-Xa, Unfract 0.29 L 0.24 L Sodium 134 L 136 Potassium 4.2 4.0 Chloride 101 105 Carbon Dioxide 24 24 Anion Gap 9 7 BUN 18 14 Creatinine 1.13 0.96 Est Cr Clr Drug Dosing 41.7 49.5 Est GFR ( Amer) 53.5 65.2 Est GFR (Non-Af Amer) 46.2 56.2 BUN/Creatinine Ratio 15.9 14.6 Glucose 90 98 Calcium 9.2 8.9 Magnesium 2.0 Total Bilirubin 0.8 AST 14 ALT 17 Alkaline Phosphatase 62 Troponin I High Sens 7.8 Total Protein 7.5 Albumin 4.1 Globulin 3.4 Albumin/Globulin Ratio 1.2 TSH 3.305 Diagnostic Findings Dated 12/19/2023: Normal LV systolic function with ejection fraction 50-55%. Mild left atrial dilation. Mild to moderate mitral regurgitation. Chest x-ray obtained the time admission did not reveal any acute cardiopulmonary process ECG Additional Comments: EKG obtained in the emergency room revealed atrial flutter with left bundle branch block PG Care Time/CCT Total # of Minutes Spent Total Time Spent with Patient: Total time spent is greater than 50% in coordination of care (as documented) at patient's floor/unit and/or counseling patient: Coding Level of Care Code 25678 INT INP/OBS CARE 3/75MIN Diagnoses Atrial flutter I48.92 Mitral regurgitation I34.0 Left bundle branch block I44.7
--- NOTE | 2023-12-19 11:00 | XCELERA ---
[id number]
--- NOTE | 2023-12-19 11:16 | Electrocardiogram Report ---
Test Reason : Blood Pressure : / mmHG Vent. Rate : 149 BPM Atrial Rate : 000 BPM P-R Int : 000 ms QRS Dur : 140 ms QT Int : 312 ms P-R-T Axes : 000 -60 108 degrees QTc Int : 491 ms Atrial flutter Left axis deviation Left bundle branch block Abnormal ECG When compared with ECG of 01-DEC-2023 09:12, Wide QRS tachycardia has replaced Sinus rhythm Vent. rate has increased BY 66 BPM Confirmed by Boom Kapoor ([id number]) on 12/19/2023 11:16:08 AM Referred By: Jennifer Madrid Confirmed By:Lee Kapoor
--- NOTE | 2023-12-19 11:17 | Electrocardiogram Report ---
Test Reason : Blood Pressure : / mmHG Vent. Rate : 096 BPM Atrial Rate : 096 BPM P-R Int : 182 ms QRS Dur : 138 ms QT Int : 386 ms P-R-T Axes : 099 -46 116 degrees QTc Int : 487 ms Atrial flutter with variable ventricular response Left axis deviation Left bundle branch block Abnormal ECG When compared with ECG of 18-DEC-2023 16:36, (unconfirmed) Vent. rate has decreased BY 53 BPM Confirmed by Boom Kapoor ([id number] on 12/19/2023 11:17:07 AM Referred By: Jennifer Madrid Confirmed By:Lee Kapoor
[2023-12-19] MEDS: METOPROLOL TARTRATE 1 MG/ML VIAL IV PRN (14:09)
--- NOTE | 2023-12-19 15:26 | Anesthesiology Consultation ---
Date of Service December 19, 2023 Assessment & Plan Chart Review Chart Review: Acceptable Risk for Surgery and Patient NOT seen in Pre Admission Testing Consults Requested none History Surgery Operation Date: 12/20/23 07:30 Proposed Procedures p Transesophageal Echo w/Anesthesia - Boom Kapoor MD s Cardioversion Project Controller w/Anesthesia - Boom Kapoor MD Height/Weight Height: 5 ft 5 in Weight: 75.7 kg Allergies Allergy/AdvReac Type Severity Reaction Status Date / Time ciprofloxacin Allergy Intermediate itching Verified 12/18/23 18:25 adhesive Allergy Mild SOME Verified 12/18/23 18:25 BANDAIDS GIVE PT RED SKIN Medications Home Medications Medication Instructions Recorded Confirmed Last Taken xygjorit-ugwc-jjht 8 mg-folic 400 1 tab PO QDL 08/28/19 12/18/23 12/18/23 mcg-K 50 mcg-lutein 300 mcg tablet (Centrum Silver Women) lactobacillus combination no.9 4 0 mmu cells PO QDL 08/17/22 12/18/23 12/18/23 billion cell capsule (Adult 50 Plus Probiotic) amlodipine 5 mg-olmesartan 20 mg 1 tab PO QAM 08/15/23 12/18/23 12/18/23 tablet cholecalciferol (vitamin D3) 50 50 mcg PO QDL 10/30/23 12/18/23 12/18/23 mcg (2,000 unit) capsule rajzfaksa-TCA-ehneozsuipywg tablet 1 tab PO DIRECTED PRN Cold 12/01/23 12/18/23 12/01/23 Symptoms famotidine 20 mg tablet (Pepcid AC) 20 mg PO DAILY 12/18/23 12/18/23 12/18/23 promethazine 25 mg tablet 12.5 mg PO BID PRN nausea and 12/18/23 12/18/23 12/18/23 08:00 vomiting Active Medications Generic Name Dose Route Start Last Admin Trade Name Freq PRN Reason Stop Dose Admin Famotidine 20 mg 12/19/23 09:00 12/19/23 08:14 Famotidine 20 Mg Tab PO 01/18/24 08:59 20 mg DAILY ABRAHAM Administration Heparin Sodium/Dextrose 25,000 units in 500 mls @ 18 mls/hr 12/18/23 19:30 12/19/23 10:22 Heparin Sodium/Dextrose IV 01/17/24 19:29 900 units/hr .Q24H ABRAHAM 18 mls/hr Titration Protocol 900 UNITS/HR Metoprolol Tartrate 5 mg 12/18/23 19:43 12/19/23 14:09 Metoprolol Tartrate 1 Mg/Ml Vial IV 5 mg Q6H PRN Administration Tachycardia Past Medical History Medical History History of COVID-13 Sep 2022. mild symptoms at the time. History of anesthesia reaction Brother gets panic attacks and doesn't come out of anesthesia well. Sister takes awhile to get awake. Borderline high cholesterol Osteopenia External hemorrhoids hx Primary hypertension Monoclonal gammopathy (06/25/13) blood work yearly/no changes. 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 Status post abnormal left breast mammogram Status post ultrasound-guided core needle biopsy 10/10/2017 benign tissue " Past Family History Family History Mother Diabetes Hypertension Stroke Heart disease Myocardial infarction Father Multiple myeloma Denies family history of Ovarian cancer Prostate cancer Breast cancer Colorectal cancer Past Surgical History Surgical History Status post Mohs surgery chin-09/03/23 History of cataract surgery left-08/22/23 History of colonoscopy History of total left knee replacement History of total right knee replacement History of lumpectomy of right breast S/P tonsillectomy and adenoidectomy pt not sure about adenoidectomy. Confirms tonsillectomy. S/P fine needle aspiration H/O breast biopsy History of bone marrow biopsy Social History Smoking Status: Former smoker Smoking cigarettes per day: 1/2 PPD Do You Dip or Chew Tobacco: No Smoking End Date: 45 years ago Hx Alcohol Use: Yes Alcohol type: other alcohol intake frequency: 0-2 drinks per day Alcohol Intake Frequency Comment: Drinks one cocktail/night Hx Substance Use: No substance use type: does not use Physical Exam Vital Signs Last Vital Signs Temp 98.2 F 12/19/23 11:46 Pulse 79 12/19/23 14:23 Resp 18 12/19/23 11:46 BP 134/86 12/19/23 14:23 Pulse Ox 97 12/19/23 11:46 O2 Del Method Room Air 12/19/23 11:46 Testing Laboratory Results 12/19/23 02:11 12/19/23 02:11 PT 11.0 Seconds (9.0-12.0) 12/19/23 02:11 INR 1.0 (0.9-1.1) 12/19/23 02:11 APTT 31 Seconds (21-31) 12/18/23 16:41 Electrocardiogram Date: 12/18/23 Findings: + AFIB @ (96) and + LBBB Echocardiogram Date: 12/19/23 EF: 50-55 LV Function: normal Valvular Disease: + MR
[2023-12-19 16:46] LABS: ANTI-Xa, UFH(UnfractionatedHep 0.28 IU/ml (0.3-0.7)
[2023-12-19] MEDS ORDERED: PROMETHAZINE HCL 25 MG TAB PO PRN (18:28)
--- NOTE | 2023-12-19 18:41 | Hospitalist Progress Note ---
Date of Service December 19, 2023 Assessment & Plan (1) Wide-complex tachycardia: Plan: Atrial flutter - reviewed tele this afternoon remains in flutter with variable block -consulted cardiology - discussed with Dr. Kapoor -reviewed TTE normal EF, mod MR, dilated left atrium -new onset, plan to continue heparin drip, TIFFANIE with possible cardioversion tomorrow -rate control for now with metoprolol 5 mg IV q6h -plan for discharge on apixaban for stroke prevention -contiue tele -AM BMP CBC, heparin monitoring labs (2) Abdominal pain: Plan: Symptoms x 2 months undergoing outpatient workup Lower midline/bilateral abdominal pain and bloating, gassiness following meals, intermittent epigastric pain -did not aristides with pepcid, miralax -has EGD/colonoscopy scheduled for December -has had presyncopal and syncopal episodes recently that sounds vasovagal with preceding abdominal sx and prodrome, seem unlikely related to aflutter -CT noted major abdominal vessels patent -CMP unremarkable, added lipase to AM labs -consider increasing acid suppression - symptomatic trial of PPI and carafate -already taking probiotic -possibly IBS Reviewed recent CT abdomen/pelvis unremarkable except for renal cysts confirmed on follow-up renal ultrasound (3) Primary hypertension: Plan: -Currently stable -Will continue hold amlodipine-olmesartan for now to prevent hypotension with IV cardiac medications on admission (4) Mitral regurgitation: Plan: noted on Echo (5) Left bundle branch block: Plan: Preexisting Plan Admission and Anticipated Discharge Date Admission Date: December 18, 2023 Subjective feels good with respect to breathing and has no palpitations or chest pain during interview HR went up to 150 in aflutter still remained asymptomatic from this, EKG obtained her main complaint is her abdominal issues for last 2 months feels bloating and gassy after meals, has intermittent epigastric pain feels like a "knot" has had some unquantified weight loss, taking phenergan for nausea, has trial of pepcid and miralax didnt help, taking probiotic. Physical Exam 2 Physical Exam: PHYSICAL EXAMINATION Last 24h vital signs reviewed, see documentation in flowsheet General: comfortable appearing, no distress HEENT: Normocephalic, atraumatic, pupils round and equal, sclerae anicteric, no conjunctival injection, moist mucus membranes Lungs: Normal respiratory effort. Clear to auscultation bilaterally. No RRW Heart: tachycardic regular, no murmurs. No JVD Abdomen: Soft, nontender, nondistended. Bowel sounds present. Extremities: Warm, dry, well-perfused. No extremity edema. Neuro: Alert and oriented x 4, face symmetric, moves 4 extremities well Psych: Normal affect and behavior Results & Data Results & Data Vital Signs (Past 12 Hours) Vital Signs Temp Pulse Pulse Resp BP BP BP 12/19/23 15:46 89 12/19/23 15:30 36.9 C 90 18 115/72 12/19/23 14:23 79 134/86 12/19/23 14:09 150 H 129/96 12/19/23 12:00 99 H 12/19/23 11:46 36.8 C 94 H 18 107/85 12/19/23 11:14 36.9 C 111 H 18 111/89 12/19/23 08:11 97 H 22 134/87 12/19/23 07:29 78 Pulse Ox O2 Del Method 12/19/23 15:46 12/19/23 15:30 95 Room Air 12/19/23 14:23 12/19/23 14:09 12/19/23 12:00 12/19/23 11:46 97 Room Air 12/19/23 11:14 94 Room Air 12/19/23 08:11 97 Room Air 12/19/23 07:29 Laboratory Results 12/19/23 02:11 12/19/23 02:11 PG Care Time/CCT Total # of Minutes Spent Total Time Spent with Patient: Total time spent is greater than 50% in coordination of care (as documented) at patient's floor/unit and/or counseling patient: Coding Level of Care Code 74557 SUB INP/OBS CARE 2/35MIN Diagnoses Wide-complex tachycardia R00.0 Abdominal pain R10.9 Primary hypertension I10 Mitral regurgitation I34.0 Left bundle branch block I44.7
[2023-12-19] MEDS: SIMETHICONE 80 MG CHEW PO PRN (23:09)
[2023-12-19] MEDS ORDERED: SODIUM CHLORIDE 0.9% 1,000 ML IV SCH (23:30)
[2023-12-19 23:37] LABS: ANTI-Xa, UFH(UnfractionatedHep 0.35 IU/ml (0.3-0.7)
[2023-12-20] MEDS: HEPARIN SODIUM/DEXTROSE 25,000 UNITS/500 ML BAG IV SCH (02:57)
[2023-12-20] MEDS ORDERED: LIDOCAINE 2% 2 ML VIAL/AMP(20MG/ML) INFIL ONE (06:55)
[2023-12-20] MEDS ORDERED: PROPOFOL IV EMULSION 10 MG/ML 20 ML VIAL IV ONE (06:55)
[2023-12-20] MEDS ORDERED: BENZOCAINE/TETRACAIN/BUTAM 50 APPLN/5 GM CAN EXT ONE (07:31)
[2023-12-20 08:48] LABS: Hematocrit (blood only) 34.4 % (37.0-47.0); Hemoglobin 11.7 g/dl (12.0-16.0); Mean Corpuscular Hemoglobin 29.7 pg (25.0-34.0); Mean Corpuscular Volume 87.3 fL (80.0-100.0); Mean Platelet Volume 9.2 fL (9.4-12.4); Platelet Count 192 K/uL (130-400); RDW Coefficient of Variation 12.4 % (11.5-14.5); RDW Standard Deviation 39.8 fL (36.4-46.3); Red Blood Count 3.94 M/uL (4.20-5.40); White Blood Count 4.98 K/ul (4.8-10.8)
--- NOTE | 2023-12-20 08:56 | Anesthesiology Progress Note ---
Date of Service December 20, 2023 Anesthesia Post Procedure Vital Signs Vital Signs: Temp Pulse Pulse Resp BP BP BP 12/20/23 08:33 97.9 F 102 H 18 130/80 12/20/23 08:09 106 H 16 141/99 H 12/20/23 07:54 123 H 16 123/68 12/20/23 07:34 125 H 16 147/104 H 12/20/23 03:09 98.1 F 71 18 119/73 12/19/23 23:20 98.1 F 92 H 18 132/83 12/19/23 23:00 122 H 12/19/23 19:50 12/19/23 19:39 98.2 F 76 18 122/70 12/19/23 15:46 89 12/19/23 15:30 98.4 F 90 18 115/72 12/19/23 14:23 79 134/86 12/19/23 14:09 150 H 129/96 12/19/23 12:00 99 H 12/19/23 11:46 98.2 F 94 H 18 107/85 12/19/23 11:14 98.4 F 111 H 18 111/89 Pulse Ox Pulse Ox O2 Del Method O2 Del Method O2 Flow Rate 12/20/23 08:33 97 Room Air 12/20/23 08:09 98 Room Air 0 12/20/23 07:54 98 Oxymask 8 12/20/23 07:34 97 Room Air 12/20/23 03:09 94 Room Air 12/19/23 23:20 96 Room Air 12/19/23 23:00 12/19/23 19:50 98 Room Air 12/19/23 19:39 98 Room Air 12/19/23 15:46 12/19/23 15:30 95 Room Air 12/19/23 14:23 12/19/23 14:09 12/19/23 12:00 12/19/23 11:46 97 Room Air 12/19/23 11:14 94 Room Air Transfer of Care Handoff Completed per policy Notes Mental Status: alert / awake / arousable and participated in evaluation Patient Amnestic to Procedure: Yes Nausea / Vomiting: adequately controlled Pain: adequately controlled Airway Patency, RR, SpO2: stable & adequate BP & HR: stable & adequate Hydration State: stable & adequate Anesthetic Complications: no major complications apparent and Pt Satisfied with anesthetic care
[2023-12-20 09:06] LABS: BUN Creatinine Ratio 13.8 (10-20); Calcium 9.3 mg/dl (8.6-10.3); Creatinine Clr Calc Pharmacy 49.4 ml/min; Est GFR (African American) 66.9 ml/min; Est GFR (Non-African American) 57.7 ml/min; Potassium 3.8 mmol/L (3.5-5.1)
[2023-12-20 09:12] LABS: ANTI-Xa, UFH(UnfractionatedHep 0.37 IU/ml (0.3-0.7)
[2023-12-20] MEDS: SUCRALFATE 1 GM/10 ML UDC PO SCH ×4 (09:44→20:42)
[2023-12-20] MEDS: APIXABAN 5 MG TABLET PO SCH ×2 (09:44→20:42)
[2023-12-20] MEDS: PANTOprazole 40 MG TAB PO SCH (09:45)
[2023-12-20] MEDS: METOPROLOL TARTRATE 25 MG TAB PO SCH ×4 (10:23→20:42)
--- NOTE | 2023-12-20 12:11 | Ultrasound Report ---
US duplex mesenteric CLINICAL HISTORY: postprandial abdominal pain, afib TECHNIQUE: Multiple sonographic real-time images of the mesenteric vasculature were obtained. COMPARISON: None available at the time of this dictation. FINDINGS: Aortic velocity measures 76 cm/s. Celiac artery velocity measures 168 cm/s. SMA velocity measures 16 cm/s. IMPRESSION: Normal mesenteric vascular velocities without evidence of stenosis. ACT 112: Negative or not required by law. Electronically signed by: Julius Ervin M.D. 12/20/2023 12:09 PM
--- NOTE | 2023-12-20 16:23 | Hospitalist Progress Note ---
Date of Service December 20, 2023 Assessment & Plan (1) Wide-complex tachycardia: Plan: Atrial flutter - remains in flutter with variable block -consulted cardiology - discussed with Dr. Kapoor 12/19, 12/20 -reviewed TTE normal EF, mod MR, dilated left atrium -TIFFANIE 12/20 with thrombus present thus cardioversion not recommended -rate control - po metoprolol ordered by rn anesthetist -stopped heparin and ordered apixaban -contiue tele -will be evaluated by cardiology for cardioversion after several weeks of anticoagulation -discharge home once reasonable rate control achieved (2) Abdominal pain: Plan: Symptoms x 2 months undergoing outpatient workup Lower midline/bilateral abdominal pain and bloating, gassiness following meals, intermittent epigastric pain Reviewed recent CT abdomen/pelvis unremarkable except for renal cysts confirmed on follow-up renal ultrasound -did not aristides with pepcid, miralax -has EGD/colonoscopy scheduled for December -has had presyncopal and syncopal episodes recently that sounds vasovagal with preceding abdominal sx and prodrome, seem unlikely related to aflutter -CT noted major abdominal vessels patent -CMP unremarkable, lipase normal -stopped pepcid and started trial of PPI and carafate for epigastric pain, especially since she'll be anticoagulated -already taking probiotic -considered mesenteric ischemia - ordered mesenteric duplex and abdominal arteries are wnl with no stenoses -possibly IBS (3) Primary hypertension: Plan: -Currently stable -hold amlodipine-olmesartan, titrating metoprolol (4) Mitral regurgitation: Plan: noted on Echo (5) Left bundle branch block: Plan: Preexisting Plan DVT ppx: on apixaban Admission and Anticipated Discharge Date Admission Date: December 18, 2023 Subjective no dyspnea or chest pain, having intermittent abdominal symptoms as per recent baseline, intermittent epigastric pain and intermittent lower abdominal bloating and burning sensation after meals especially Physical Exam Physical Exam: PHYSICAL EXAMINATION Last 24h vital signs reviewed, see documentation in flowsheet General: comfortable appearing, no distress HEENT: Normocephalic, atraumatic, pupils round and equal, sclerae anicteric, no conjunctival injection, moist mucus membranes Lungs: Normal respiratory effort. CTAB no rrw Heart: reg no mrg no JVT Abdomen: Soft, nontender, nondistended. Bowel sounds present. unchanged 12/20 Extremities: Warm, dry, well-perfused. No extremity edema. Neuro: Alert and oriented x 4, face symmetric, moves 4 extremities well Psych: Normal affect and behavior Results & Data Results & Data Vital Signs (Past 12 Hours) Vital Signs Temp Pulse Pulse Resp BP BP BP 12/20/23 16:04 36.8 C 107 H 18 109/66 12/20/23 15:48 92 H 12/20/23 11:18 36.5 C 97 H 18 120/80 12/20/23 08:33 36.6 C 102 H 18 130/80 12/20/23 08:09 106 H 16 141/99 H 12/20/23 08:00 92 H 12/20/23 07:54 123 H 16 123/68 12/20/23 07:34 125 H 16 147/104 H Pulse Ox O2 Del Method O2 Flow Rate 12/20/23 16:04 96 Room Air 12/20/23 15:48 12/20/23 11:18 97 Room Air 12/20/23 08:33 97 Room Air 12/20/23 08:09 98 Room Air 0 12/20/23 08:00 12/20/23 07:54 98 Oxymask 8 12/20/23 07:34 97 Room Air PG Care Time/CCT Total # of Minutes Spent Total Time Spent with Patient: Total time spent is greater than 50% in coordination of care (as documented) at patient's floor/unit and/or counseling patient: Coding Level of Care Code 98227 SUB INP/OBS CARE 2/35MIN Diagnoses Wide-complex tachycardia R00.0 Abdominal pain R10.9 Primary hypertension I10 Mitral regurgitation I34.0 Left bundle branch block I44.7
[2023-12-20] MEDS: METOPROLOL TARTRATE 1 MG/ML VIAL IV PRN (16:42)
--- NOTE | 2023-12-20 18:50 | XCELERA ---
[id number]
--- NOTE | 2023-12-20 19:08 | Cardiology Progress Note ---
Date of Service December 20, 2023 Assessment & Plan (1) Atrial flutter: (2) Mitral regurgitation: (3) Left bundle branch block: Plan 1. Atrial flutter: Unfortunately, patient appeared to have thrombus in left atrial appendage on her transesophageal echocardiogram this morning. As such, cardioversion was not performed. We will make some attempt at rate control for the next few weeks while she is on systemic anticoagulation. I will start her on oral metoprolol. She will be switched from heparin to Eliquis. 2. Mitral regurgitation: Mild to moderate. Normal LV function. No symptoms. This can be monitored over time 3. Left bundle-branch block: Chronic Admission and Anticipated Discharge Date Admission Date: December 18, 2023 Subjective This afternoon the patient claimed he feeling well. She is ambulatory around the castillo without symptoms. She actually felt better this afternoon than she did yesterday. Generally not aware of any palpitations. Review of Systems Review of Systems: Per HPI Physical Exam Physical Exam: She is alert and oriented x3. Mood affect appear normal. She answered all questions appropriately. HEENT: Sclerae are anicteric. Pupils are equal and reactive to light and accommodation. Extraocular movements were intact. Neuro: Cranial nerves intact Lungs: Normal respiratory effort Cardiac: The rhythm was irregular. Extremities: There is no evidence cyanosis or clubbing. There was no evidence of significant peripheral edema bilaterally. Skin: There are no rashes noted on examination today. Results & Data Vital Signs (Past 12 Hours) Vital Signs Temp Pulse Pulse Resp BP BP BP 12/20/23 17:16 136 H 12/20/23 17:02 136 H 117/86 12/20/23 16:42 135 H 109/66 12/20/23 16:04 36.8 C 107 H 18 109/66 12/20/23 15:48 92 H 12/20/23 15:00 93 H 12/20/23 11:18 36.5 C 97 H 18 120/80 12/20/23 08:33 36.6 C 102 H 18 130/80 12/20/23 08:09 106 H 16 141/99 H 12/20/23 08:00 92 H 12/20/23 07:54 123 H 16 123/68 12/20/23 07:34 125 H 16 147/104 H Pulse Ox O2 Del Method O2 Flow Rate 12/20/23 17:16 12/20/23 17:02 12/20/23 16:42 12/20/23 16:04 96 Room Air 12/20/23 15:48 12/20/23 15:00 12/20/23 11:18 97 Room Air 12/20/23 08:33 97 Room Air 12/20/23 08:09 98 Room Air 0 12/20/23 08:00 12/20/23 07:54 98 Oxymask 8 12/20/23 07:34 97 Room Air Laboratory Results Abnormal Lab Results 12/19/23 12/20/23 23:04 08:30 WBC 4.98 RBC 3.94 L Hgb 11.7 L Hct 34.4 L MCV 87.3 MCH 29.7 MCHC 34.0 RDW Std Deviation 39.8 RDW Coeff of Deion 12.4 Plt Count 192 MPV 9.2 L Heparin Anti-Xa, Unfract 0.35 0.37 Sodium 138 Potassium 3.8 Chloride 107 Carbon Dioxide 25 Anion Gap 6 BUN 13 Creatinine 0.94 Est Cr Clr Drug Dosing 49.4 Est GFR ( Amer) 66.9 Est GFR (Non-Af Amer) 57.7 BUN/Creatinine Ratio 13.8 Glucose 102 H Calcium 9.3 Lipase 79 Diagnostic Findings TIFFANIE demonstrated clot left atrial appendage PG Care Time/CCT Total # of Minutes Spent Total Time Spent with Patient: Total time spent is greater than 50% in coordination of care (as documented) at patient's floor/unit and/or counseling patient: Coding Level of Care Code 78666 SUB INP/OBS CARE 2/35MIN Diagnoses Atrial flutter I48.92 Mitral regurgitation I34.0 Left bundle branch block I44.7
--- NOTE | 2023-12-20 19:47 | Electrocardiogram Report ---
Test Reason : Blood Pressure : / mmHG Vent. Rate : 151 BPM Atrial Rate : 117 BPM P-R Int : 000 ms QRS Dur : 136 ms QT Int : 344 ms P-R-T Axes : 000 -60 119 degrees QTc Int : 545 ms atrial flutter Left axis deviation Left bundle branch block Abnormal ECG Confirmed by Boom Kapoor ([id number]) on 12/20/2023 7:47:07 PM Referred By: Jennifer Madrid Confirmed By:Lee Kapoor
[2023-12-20] MEDS: SIMETHICONE 80 MG CHEW PO PRN (20:52)
[2023-12-21] MEDS: METOPROLOL TARTRATE 25 MG TAB PO SCH ×3 (03:34→15:15)
[2023-12-21 07:09] LABS: Hematocrit (blood only) 36.1 % (37.0-47.0); Hemoglobin 11.8 g/dl (12.0-16.0); Mean Corpuscular Hemoglobin 29.1 pg (25.0-34.0); Mean Corpuscular Hgb Conc 32.7 g/dL (32.0-36.0); Mean Corpuscular Volume 88.9 fL (80.0-100.0); Mean Platelet Volume 9.2 fL (9.4-12.4); Platelet Count 231 K/uL (130-400); RDW Coefficient of Variation 12.6 % (11.5-14.5); RDW Standard Deviation 41.2 fL (36.4-46.3); Red Blood Count 4.06 M/uL (4.20-5.40); White Blood Count 6.92 K/ul (4.8-10.8)
[2023-12-21 07:38] LABS: BUN Creatinine Ratio 15.2 (10-20); Calcium 9.4 mg/dl (8.6-10.3); Creatinine Clr Calc Pharmacy 46.9 ml/min; Est GFR (African American) 62.8 ml/min; Est GFR (Non-African American) 54.2 ml/min; Potassium 3.9 mmol/L (3.5-5.1)
[2023-12-21] MEDS: SUCRALFATE 1 GM/10 ML UDC PO SCH ×2 (07:53→12:29)
[2023-12-21] MEDS: APIXABAN 5 MG TABLET PO SCH (07:54)
[2023-12-21] MEDS: PANTOprazole 40 MG TAB PO SCH (07:54)
--- NOTE | 2023-12-21 13:37 | Cardiology Progress Note ---
Date of Service December 21, 2023 Assessment & Plan (1) Atrial flutter: (2) Mitral regurgitation: (3) Left bundle branch block: Plan 1. Atrial flutter: Her more recent rhythms appeared to be atrial fibrillation. Very likely that the atrial flutter degenerated in the atrial fibrillation. This would allow for better rate control overall. Her best option in the long run may still be catheter based therapy. However, will currently plan for cardioversion after 3-4 weeks of systemic anticoagulation. 2. Mitral regurgitation: Mild to moderate. Normal LV function. No symptoms. This can be monitored over time 3. Left bundle-branch block: Chronic I think she could be discharged from cardiac standpoint. Will rate control may very and not be optimal, she seems to feel well and were only waiting a few weeks before we can cardiovert her. I think she could easily go home on her current dose of metoprolol tartrate converted to metoprolol succinate. She should continue systemic anticoagulation with apixaban. Admission and Anticipated Discharge Date Admission Date: December 18, 2023 Subjective The patient appeared to be feeling well this afternoon. Somewhat tired after some activity this morning. She did report being able to ambulate without dizziness or dyspnea. No chest pain or sense of palpitation. Her abdominal complaints also appeared to have improved. Review of Systems Review of Systems: Per HPI Physical Exam Physical Exam: She is alert and oriented x3. Mood affect appear normal. She answered all questions appropriately. HEENT: Sclerae are anicteric. Pupils are equal and reactive to light and accommodation. Extraocular movements were intact. Neuro: Cranial nerves intact Lungs: Normal respiratory effort. Lungs clear Cardiac: The rhythm was irregular. Extremities: There is no evidence cyanosis or clubbing. There was no evidence of significant peripheral edema bilaterally. Skin: There are no rashes noted on examination today. Results & Data Vital Signs (Past 12 Hours) Vital Signs Temp Pulse Pulse Pulse Resp BP BP 12/21/23 11:55 36.6 C 82 16 115/75 12/21/23 07:44 85 12/21/23 07:36 36.5 C 81 16 126/80 12/21/23 03:16 36.6 C 70 18 116/82 Pulse Ox O2 Del Method 12/21/23 11:55 96 Room Air 12/21/23 07:44 12/21/23 07:36 98 Room Air 12/21/23 03:16 96 Room Air Laboratory Results Abnormal Lab Results 12/21/23 06:33 WBC 6.92 RBC 4.06 L Hgb 11.8 L Hct 36.1 L MCV 88.9 MCH 29.1 MCHC 32.7 RDW Std Deviation 41.2 RDW Coeff of Deion 12.6 Plt Count 231 MPV 9.2 L Sodium 136 Potassium 3.9 Chloride 105 Carbon Dioxide 23 Anion Gap 8 BUN 15 Creatinine 0.99 Est Cr Clr Drug Dosing 46.9 Est GFR ( Amer) 62.8 Est GFR (Non-Af Amer) 54.2 BUN/Creatinine Ratio 15.2 Glucose 80 Calcium 9.4 PG Care Time/CCT Total # of Minutes Spent Total Time Spent with Patient: Total time spent is greater than 50% in coordination of care (as documented) at patient's floor/unit and/or counseling patient: Coding Level of Care Code 96038 SUB INP/OBS CARE 2/35MIN Diagnoses Atrial flutter I48.92 Mitral regurgitation I34.0 Left bundle branch block I44.7
--- NOTE | 2023-12-21 17:56 | Discharge Summary ---
Date of Service December 21, 2023 Admission HPI Per Admitting Provider Ayde is a 78 year old female with a PMH significant for LBBB, HTN, HLD, IgM MGUS, anxiety, and IBS who was sent to the ED via EMS due to generalized weakness, wide complex tachycardia, and recent syncopal episodes with heart palpitations. On arrival to the ED she was noted to be tachycardic with HR in the 140-150's but was otherwise stable. ECG on arrival showed a wide complex tachycardia with her chronic LBBB noted but was otherwise negative for acute ST segment or T-wave changes. The patient was given 500 mL NSS, 1gm IV mag sulfate, and 2 doses of 10 mg IV diltiazem with HR temporarily improving to the 90's. At the time of the exam the patient was sitting in bed in no acute distress with her sitting bedisde, history was obtained from both. She states that she has been dealing with gastrointestinal issues for the past few months. She has had a large workup for the GI issues, thought to be caused by IBS at this time. She saw her PCP earlier today for the ongoing GI issues and they found her to be in a wide complex tachycardia with HR in the 150's, which is why they sent her to the ED. She states that she has been experiencing heart palpitations while lying in bed the past 2 nights, but denies any palpitations during the day or with activity. She denies recent chest pain, SOB, cough, lightheadedness/dizziness, dysuria, hematuria, melena, LE swelling, and recent trauma. Of note, approximately 3 weeks ago the patient experiencing 2 episodes of syncope at home. She had been dealing with a bout of diarrhea and got up in the white washer to have a bowel movement. While sitting on the toilet she states that she had what she believes to be a vasovagal episode as she has had previous episodes in the past. She felt the symptoms coming on and yelled for her who was able to catch her and prevent her from falling. When she woke, she stood to walk to their bed but suddenly lost consciousness again. She denies have prodromal symptoms prior to the second episode of syncope. Her states that she was unconscious for 10-15 seconds after the second episode. She was evaluated in the ED and discharged home as her workup had been unremarkable. She is currently comfortable sitting in bed and denies a previous hx of heart rhythm issues or CHF. She is a full code and would want her to make medical decisions for her if she cannot make them herself. Principal Diagnosis Atrial flutter with rapid rate Discharge Exam PHYSICAL EXAMINATION Last 24h vital signs reviewed, see documentation in flowsheet General: comfortable appearing, no distress, sitting in chair by window HEENT: Normocephalic, atraumatic, pupils round and equal, sclerae anicteric, no conjunctival injection, moist mucus membranes Lungs: Normal respiratory effort. Heart: deferred Abdomen: Soft, nontender, nondistended. Extremities: Warm, dry, well-perfused. No extremity edema. Neuro: Alert and oriented x 4, face symmetric, moves 4 extremities well Psych: Normal affect and behavior Discharge Data Allergies Allergy/AdvReac Type Severity Reaction Status Date / Time ciprofloxacin Allergy Intermediate itching Verified 12/18/23 18:25 adhesive Allergy Mild SOME Verified 12/18/23 18:25 BANDAIDS GIVE PT RED SKIN Consultations 12/18/23 18:17 ED Decision to Admit Stat 12/18/23 19:21 Consult Cardiology Routine 12/19/23 11:40 Consult Anesthesiology Routine Procedures Performed Operation Date: 12/20/23 07:30 Actual Procedures p Echo Transesophageal - Boom Kapoor MD s Doppler Echo Limited/Follow Up - Boom Kapoor MD s Echo Color Flow - Boom Kapoor MD Chest X-Ray 12/18/23 16:38 XR chest 1V portable HISTORY: 78 years-old Female Dysrhythmia acute chest pain COMPARISON: 12/01/2023 TECHNIQUE: AP view of the chest FINDINGS: Cardiac silhouette is mildly enlarged. Chronic right hemidiaphragmatic elevation with mild chronic interstitial coarsening. No pneumothorax, pleural effusion, airspace consolidation or pulmonary edema. Degenerative changes of the shoulders and spine. IMPRESSION: No acute process. ACT 112: Negative or not required by law. The above report was generated using voice recognition software. It may contain grammatical, syntax or spelling errors. Electronically signed by: Alessandro Patricia M.D. 12/18/2023 5:06 PM Mesenteric US 12/20/23 08:37 US duplex mesenteric CLINICAL HISTORY: postprandial abdominal pain, afib TECHNIQUE: Multiple sonographic real-time images of the mesenteric vasculature were obtained. COMPARISON: None available at the time of this dictation. FINDINGS: Aortic velocity measures 76 cm/s. Celiac artery velocity measures 168 cm/s. SMA velocity measures 16 cm/s. IMPRESSION: Normal mesenteric vascular velocities without evidence of stenosis. ACT 112: Negative or not required by law. Electronically signed by: Julius Ervin M.D. 12/20/2023 12:09 PM 12/21/23 06:33 12/21/23 06:33 Ordered Studies 12/20/23 08:37 US duplex mesenteric Routine Hospital Course (1) Wide-complex tachycardia: Atrial flutter - remained in flutter with variable block, then later in hospital course more atrial fibrillation -consulted cardiology -reviewed TTE normal EF, mod MR, dilated left atrium -TIFFANIE 12/20 with thrombus present thus cardioversion not recommended -rate control - po metoprolol uptitrated this admission, discharged on metoprolol succinate 50 mg bid -started apixaban - discussed risks:benefits of anticoagulation today and warning signs of GI bleeding and stroke -discussed with Dr. Kapoor today - aflutter hard to rate control, but reasonable rate control at this time and likely will have cardioversion within a few weeks if still in flutter -will be reevaluated by cardiology for cardioversion after several weeks of anticoagulation -stopped amlodipine/ARB because BP well controlled on metoprolol at above dose (2) Abdominal pain: Symptoms x 2 months undergoing outpatient workup Lower midline/bilateral abdominal pain and bloating, gassiness following meals, intermittent epigastric pain Reviewed recent CT abdomen/pelvis unremarkable except for renal cysts confirmed on follow-up renal ultrasound -did not aristides with pepcid, miralax -has EGD/colonoscopy scheduled for December -has had presyncopal and syncopal episodes recently that sounds vasovagal with preceding abdominal sx and prodrome, seem unlikely related to aflutter -CT noted major abdominal vessels patent -CMP unremarkable, lipase normal -stopped pepcid and started trial of PPI and carafate for epigastric pain, especially since she'll be anticoagulated - seems to have improved symptoms with this and bedtime simethicone -already taking probiotic -considered mesenteric ischemia - ordered mesenteric duplex and abdominal arteries are wnl with no stenoses -possibly IBS lower abdomen and dyspepsia r/o PUD, gastritis, GERD upper abdomen -follow up in primary care and with gastroenterology (3) Primary hypertension: -Currently stable -stopped amlodipine-olmesartan, replaced by metoprolol (4) Mitral regurgitation: noted on Echo (5) Left bundle branch block: Preexisting Plan Total Time Total Time Spent Total Time Spent (In Minutes): I personally spent: 40 minutes today on clinical care activities including: reviewing chart notes and vital signs reviewing labs reviewing studies discussion with freight trucker examining and counseling the patient writing orders documentation Discharge Plan Discharge Items Patient Disposition: Home - Self-Care Reason For Visit: TACHYCARDIA Discharge Diagnosis: atrial fibrillation and atrial flutter with rapid rate Condition on Discharge: Good Activity: Resume your previous activity Non-emergency contact: Primary Care Provider and Welding Machine Operator/Tender Call non-emergency contact if: you have any medication questions and your symptoms worsen Follow-up/Referrals: Crista Parsons PA-C [Physician Nutter Up] - 12/25/23 11:00 am Boom Kapoor MD [Physician] - (2-3 weeks) Jennifer Madrid MD [Primary Care Provider] - Diet: Heart Healthy Addtl Attending Provider Instructions: You were diagnosed with atrial flutter / atrial fibrillation -these are a common type of heart arrhythmia -it can cause symptoms if the heart goes too fast for too long - we are using medication called metoprolol to control the heart rate (replaces your other BP medication) -it can increase the risk of stroke so we recommend blood thinner - Eliquis (AKA apixaban) -follow up with cardiology clinic blood thinners increase the risk of bleeding which can rarely be life- threatening or even fatal. apixaban is the safest kind, however -seek immediate medical attention if you have abnormal bleeding especially black tarry or bloody stool -seek immediate medical attention if you have symptoms of a stroke - altered level of consciousness, trouble speaking/understanding, trouble walking/incoordination or weakness/numbness of face arm or leg try taking omeprazole (stronger than pepcid) and a 2-week course of carafate for your abdominal symptoms -follow up with gastroenterology and primary care Pending Studies at Discharge: No Stand-Alone Forms: My [employer] Social, Smoking Cessation Medications and DC Order Prescriptions: New Eliquis 5 mg Tablet 5 mg PO BID Qty: 60 1RF metoprolol succinate 50 mg tablet extended release 24 hr 50 mg PO BID Qty: 60 1RF omeprazole 40 mg capsule,delayed release(DR/EC) 40 mg PO DAILY Qty: 30 0RF sucralfate [Carafate] 1 gram tablet 1 g PO TID 14 Days Qty: 42 0RF Continued cholecalciferol (vitamin D3) 50 mcg (2,000 unit) capsule 50 mcg PO QDL Centrum Silver Women 8 mg iron-400 mcg-300 mcg tablet 1 tab PO QDL Adult 50 Plus Probiotic 4 billion cell capsule 0 mmu cells PO QDL Rx Instructions: administer with a meal promethazine 25 mg tablet 12.5 mg PO BID PRN (Reason: nausea and vomiting) Rx Instructions: PER PT "HAVE BEEN TAKING 1/2 TAB BID SINCE GETTING SICK". [id number] Tablet 1 tab PO DIRECTED PRN (Reason: Cold Symptoms) Rx Instructions: UD on box Discontinued famotidine [Pepcid AC] 20 mg Tablet 20 mg PO DAILY amlodipine-olmesartan 5-20 mg tablet 1 tab PO QAM Discharge Orders: Discharge Order (Routine); Ordered 12/21/23 Ordered By: Leigha Nicole/Other Patient Handouts: Understanding Atrial Flutter Admission Data Admit Date/Time: 12/18/23 19:09 Attending Provider: Leigha Kearney Admit Provider: Keanu Wilson Primary Care Provider: Jennifer Madrid. Other Providers: Keanu Wilson; Low Rodriguez; Melisa Dubon; Jeanie Jiménez; Vale Ellison; Eboni Tanner; Abraham Hein; Elia Montez; Broderick Morillo; Perry Cordero; Georgia Cordero; Alexander Arguelles; Cherelle Engel; Froilan Bradley; Aquiles Wilcox; Jose Hawley; Reese James; Flower Salinas; Abelardo Nash; Tala Nash; Dez Hinds; Rsoa Schuler; Clark Cartwright; Brianda Jenkins; Yi Stevens; Oc Cooper; Nikki Osborne; Katy Guy; Marcy Rowley; Miri Lopez; Haider Lopez V; Leodan Talamantes; Jeanie Gasca; Doyle Amaya; Cassandra Webb; Haider Lam; Aamir Salinas; Julius Pinto; Nicole Ellison; Chanelle Mccord; Haider Abrams; Gino Peralta; Kelley Corea; Law Persaud; Colleen Schwartz; Mirella Hagan; Aaron Lima; Adriel James; Debby Wall; Kyle Morris; Huseyin Tam; Boom Gonzalez; Abraham Crabtree Jr; Fawn Gregg; Sonja Prado; Tg Perrin; Oc Palafox; Perry Oropeza; Gina Jean Baptiste; Sonja Yates; Efren Ferreira; Edwin Schmidt; Bakari Velarde; Dominick Cowan; Toby Drummond; Francoise Mustafa; Karla Milner; Evelyn Bean Other Interventions: Discharge Summary Assessment (RN) Last Done: 12/21/23 16:09 Coding Level of Care Code 80656 INP/OBS DISCH >30 MIN Diagnoses Wide-complex tachycardia R00.0 Abdominal pain R10.9 Primary hypertension I10 Mitral regurgitation I34.0 Left bundle branch block I44.7
== END 2023-12-21 18:20 | disposition home or self-care (01) | DRG 310 ==
LOC: ED 16:32 → SUATTDRO 19:09 → EDINP 19:09 → 2S 19:48
DX: Z96.653 Presence of artificial knee joint, bilateral; I10 Essential (primary) hypertension; I34.0 Nonrheumatic mitral (valve) insufficiency; Z87.891 Personal history of nicotine dependence; Z86.16 Personal history of COVID-19; K58.9 Irritable bowel syndrome, unspecified; I44.7 Left bundle-branch block, unspecified; I48.92 Unspecified atrial flutter